=== PATIENT | female | born 2000 | race Caucasian/White ===

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

== ENCOUNTER 2020-07-05 17:43 | Emergency (ER) | payer MEDICAID ==
[2020-07-05 17:49] VITALS: TEMP 98.5
[2020-07-05] MEDS ORDERED: ACETAMINOPHEN TAB 500 MG TAB PO STA (18:01)
[2020-07-05] MEDS ORDERED: IBUPROFEN 600 MG TAB PO STA (18:01)
--- NOTE | 2020-07-05 18:08 | ED ---
ENT HPI - General Chief complaint: ENT Stated complaint: facial injury Time Seen by Provider: 07/05/20 17:54 Source: patient, RN notes reviewed, old records reviewed Mode of arrival: ambulatory Limitations: no limitations - History of Present Illness Initial comments: Patient is a 19-year-old female who presents emergency murmurs today with chief complaint of nasal pain and swelling to the left cheek and infraorbital region. Patient reports that she was kicked in the face by her great Jace. She was seen at [facility] and had an x-ray which was negative for nasal fracture. She reports she was prescribed Motrin but did not take any. She reports that she woke from a nap and complained of worsening pain and decided to come to the ER. - Related Data Home Medications Medication Instructions Recorded Confirmed Etonogestrel [Nexplanon] 1 implant SQ [id number] 11/12/18 04/10/19 Albuterol Inhaler (Mhu) [Ventolin 1 - 2 puff INHALATION RT-Q6H PRN 04/09/19 04/10/19 Hfa Inhaler] Escitalopram [Lexapro] 10 mg PO DAILY 04/09/19 04/10/19 Omeprazole [PriLOSEC] 10 mg PO DAILY 04/09/19 04/10/19 Previous Rx's Medication Instructions Recorded Acetaminophen Tab [Tylenol Tab] 500 mg PO Q6H #20 tablet 07/05/20 Allergies Allergy/AdvReac Type Severity Reaction Status Date / Time bee venom protein (honey bee) Allergy Rash/Hives Verified 07/05/20 17:49 coconut Allergy Rash/Hives Verified 07/05/20 17:49 peanut Allergy Nausea & Verified 07/05/20 17:49 Vomiting sulfamethoxazole Allergy Rash/Hives Verified 07/05/20 17:49 [From Bactrim] trimethoprim [From Bactrim] Allergy Rash/Hives Verified 07/05/20 17:49 Review of Systems ROS Statement: Those systems with pertinent positive or pertinent negative responses have been documented in the HPI. ROS Other: All systems not noted in ROS Statement are negative. Past Medical History Past Medical History: Asthma, GERD/Reflux Additional Past Medical History / Comment(s): nausea History of Any Multi-Drug Resistant Organisms: None Reported Past Surgical History: Ear Surgery Additional Past Surgical History / Comment(s): tubes in Patricio ears, wisdom teeth Past Anesthesia/Blood Transfusion Reactions: No Reported Reaction Past Psychological History: Anxiety, Depression Smoking Status: Never smoker Past Alcohol Use History: None Reported Past Drug Use History: None Reported - Past Family History Mother Family Medical History: No Reported History General Exam - General Exam Comments Initial Comments: 19-year-old female. No distress. Limitations: no limitations General appearance: alert, in no apparent distress Head exam: Present: atraumatic, normocephalic, normal inspection Eye exam: Present: normal appearance, PERRL, EOMI. Absent: scleral icterus, conjunctival injection, periorbital swelling ENT exam: Present: normal exam, mucous membranes moist, other (contusion over brdige of nose and infraorbital area. ) Neck exam: Present: normal inspection. Absent: tenderness, meningismus, lymphadenopathy Respiratory exam: Present: normal lung sounds bilaterally. Absent: respiratory distress, wheezes, rales, rhonchi, stridor Cardiovascular Exam: Present: regular rate, normal rhythm, normal heart sounds. Absent: systolic murmur, diastolic murmur, rubs, gallop, clicks GI/Abdominal exam: Present: soft, normal bowel sounds. Absent: distended, tenderness, guarding, rebound, rigid Extremities exam: Present: normal inspection, full ROM, normal capillary refill. Absent: tenderness, pedal edema, joint swelling, calf tenderness Back exam: Present: normal inspection Neurological exam: Present: alert, oriented X3, CN II-XII intact Psychiatric exam: Present: normal affect, normal mood Skin exam: Present: warm, dry, intact, normal color. Absent: rash Course Vital Signs 07/05/20 07/05/20 17:46 19:11 Temperature 98.5 F Pulse Rate 75 69 Respiratory 18 16 Rate Blood Pressure 140/97 117/71 O2 Sat by Pulse 100 100 Oximetry Medical Decision Making - Medical Decision Making 19-year-old female presents the ER today for evaluation for concern for contusion over the nose and underneath the eye after getting kicked in the face by her dog. She has a great Jace. X-ray today which was normal. Discussion the pain with eye movement. Patient will had a CT which shows no evidence of an old fracture. Discussed treatment for soft tissue swelling with isolated flipped her medicine. - Radiology Data Radiology results: report reviewed CT facial bones negative for fracture. Disposition Clinical Impression: Facial contusion Disposition: HOME SELF-CARE Condition: Good Instructions (If sedation given, give patient instructions): Facial Contusion (ED) Additional Instructions: Please use medication as discussed. Put ice on the area of redness and swelling for 20 minutes every other hour. Please follow up with family doctor if symptoms have not improved over the next two days. Please return to the emergency room if your symptoms increase or worsen or for any other concerns. Prescriptions: Acetaminophen Tab [Tylenol Tab] 500 mg PO Q6H #20 tablet Is patient prescribed a controlled substance at d/c from ED?: No Referrals: Tiffanie Stoll III, MD [Primary Care Provider] - 1-2 days
--- NOTE | 2020-07-05 18:43 | CT ---
EXAMINATION TYPE: CT facial bones wo con DATE OF EXAM: 07/05/2020 COMPARISON: None HISTORY: swelling and bruising around eyes and nasal area following facial injury CT DLP: 467.[address] of the facial bones was performed in the axial and coronal planes. Bone and soft tissu e window settings are submitted. No significant soft tissue swelling is appreciated. I do not see evidence for displaced facial bone fracture or depressed facial bone fracture. The globes are intact. Paranasal sinuses are well-aerated. IMPRESSION: 1. No evidence for depressed or displaced facial bone fracture.
[2020-07-05 19:14] VITALS: BP 117/71; PULSE 69; RESP 16
== END 2020-07-05 19:14 | disposition home or self-care (01) ==
LOC: EC 17:43
DX: S00.83XA Contusion of other part of head, initial encounter (principal); J45.909 Unspecified asthma, uncomplicated; K21.9 Gastro-esophageal reflux disease without esophagitis; F41.9 Anxiety disorder, unspecified; F32.9 Major depressive disorder, single episode, unspecified; M79.89 Other specified soft tissue disorders; Z79.899 Other long term (current) drug therapy; Z79.3 Long term (current) use of hormonal contraceptives; Z91.018 Allergy to other foods; Z91.030 Bee allergy status; Z91.010 Allergy to peanuts; Z88.2 Allergy status to sulfonamides; Z88.1 Allergy status to other antibiotic agents; W54.1XXA Struck by dog, initial encounter
CPT/HCPCS: 70486; 99284

== ENCOUNTER 2020-09-21 13:28 | Emergency (ER) | payer MEDICAID ==
[2020-09-21 14:28] LABS: Basophils % (A) 1 %; Eosinophils # (A) 0.1 k/uL (0-0.7); Eosinophils % (A) 1 %; HCT 41.1 % (34.0-46.0); HGB 13.4 gm/dL (11.4-16.0); Lymphocytes % (A) 28 %; MCH 27.1 pg (25.0-35.0); MCHC 32.6 g/dL (31.0-37.0); Mean Platelet Volume 7.5; Monocytes # (A) 0.3 k/uL (0-1.0); Monocytes % (A) 4 %; Neutrophils # (A) 4.7 k/uL (1.3-7.7); Neutrophils % (A) 65 %; Platelet Count 331 k/uL (150-450); RBC 4.95 m/uL (3.80-5.40); RDW 13.3 % (11.5-15.5); WBC 7.2 k/uL (4.0-11.0)
[2020-09-21 14:30] LABS: Appearance,Urine Clear (Clear); Bilirubin,Urine Negative (Negative); Blood,Urine Negative (Negative); Color,Urine Yellow; Glucose,Urine (UA) Negative (Negative); Ketones,Urine Negative (Negative); Leukocyte Esterase,Urine Negative (Negative); Nitrite,Urine Negative (Negative); PH, Urine 7.5 (5.0-8.0); Protein,Urine Negative (Negative); Specific Gravity,Urine 1.024 (1.001-1.035)
[2020-09-21] MEDS ORDERED: SODIUM CHLORIDE 0.9% 1,000 ML IV STA (14:37)
[2020-09-21] MEDS ORDERED: ONDANSETRON 4 MG/2 ML VIAL IVP STA (14:55)
[2020-09-21] MEDS ORDERED: KETOROLAC 15 MG/ML 1 ML VIAL IVP STA (14:55)
[2020-09-21 15:04] LABS: ALT 19 U/L (4-34); AST 31 U/L (14-36); African American GFR (CKD) >90 (>60 ml/min/1.73 sqM); Albumin 4.4 g/dL (3.5-5.0); Alkaline Phosphatase 57 U/L (38-126); Anion Gap 8 mmol/L; Blood Urea Nitrogen 10 mg/dL (7-17); Calcium 9.5 mg/dL (8.4-10.2); Carbon Dioxide 21 mmol/L (22-30); Chloride 109 mmol/L (98-107); Glucose 87 mg/dL (74-99); Non-African American GFR(CKD) >90 (>60 ml/min/1.73 sqM); Potassium 4.5 mmol/L (3.5-5.1); Sodium 138 mmol/L (137-145); Total Bilirubin 0.7 mg/dL (0.2-1.3); Total Protein 7.6 g/dL (6.3-8.2)
[2020-09-21 15:23] LABS: Amylase 41 U/L (30-110); Lipase 62 U/L (23-300)
--- NOTE | 2020-09-21 15:51 | CT ---
EXAMINATION TYPE: CT abdomen pelvis w con DATE OF EXAM: 09/21/2020 COMPARISON: November 12, 2018 HISTORY: RLQ and back pain CT DLP: 944.65 mGycm CONTRAST: CT scan of the abdomen and pelvis is performed without Oral Contrast and with IV Contrast, patient in jected with 100 mL of Isovue 300. FINDINGS: LUNG BASES-: No visible nodule. No infiltrate. LIVER/GB: No calcified gallstones. No space occupying hepatic lesion. Biliary tree is of normal ca liber. PANCREAS: No inflammation. No distinct mass. SPLEEN: No splenic enlargement. No lesion seen. ADRENALS: No nodule. No thickening. KIDNEYS/BLADDER: No hydronephrosis. No nephrolithiasis. No distinct renal mass. Urinary bladder g rossly unremarkable. BOWEL: Normal appendix. Normal bowel caliber. No inflammation. GENITAL ORGANS: Left ovarian cystic lesion measuring 3.3 cm. Right ovary appears unremarkable. No ev idence for free fluid. Uterus is free of mass lesion. LYMPH NODES: No greater than 1cm abdominal or pelvic lymph nodes are appreciated. AORTA: No significant abnormality. OSSEOUS STRUCTURES: No significant abnormality is seen. OTHER: No significant additional abnormality is seen. IMPRESSION: 1. Normal-appearing appendix. 2. Left ovarian cystic lesion.
[2020-09-21 16:04] VITALS: BP 107/48; PULSE 56; RESP 16; TEMP 98.3
[2020-09-21] MEDS ORDERED: MORPHINE SULFATE 4 MG/ML SYRINGE IVP STA (16:09)
--- NOTE | 2020-09-21 16:14 | ED ---
Abdominal Pain HPI - General Chief Complaint: Abdominal Pain Stated Complaint: abd pain Time Seen by Provider: 09/21/20 14:36 Source: patient Mode of arrival: ambulatory Limitations: no limitations - History of Present Illness Initial Comments: 20-year-old female presenting to the emergency department with a chief complaint of abdominal pain. Patient reports she developed a somewhat of a sudden onset of right lower quadrant abdominal pain yesterday with slight radiation to the flank region. Patient states afterwards she developed chills, nausea and multiple episodes of nonbilious and nonbloody vomiting. Denies any diarrhea. Denies increased urgency frequency or dysuria. Denies any vaginal symptoms. She does have history of ovarian cysts. No history of previous abdominal surgeries. No back pain, chest pain or shortness of breath. - Related Data Home Medications Medication Instructions Recorded Confirmed Etonogestrel [Nexplanon] 1 implant SQ [id number] 11/12/18 09/21/20 ALPRAZolam [Xanax] 0.25 mg PO DAILY PRN 09/21/20 09/21/20 Desvenlafaxine Succinate [Pristiq] 50 mg PO HS 09/21/20 09/21/20 Ondansetron [Zofran] 4 mg PO Q12HR PRN 09/21/20 09/21/20 Allergies Allergy/AdvReac Type Severity Reaction Status Date / Time bee venom protein (honey bee) Allergy Rash/Hives Verified 09/21/20 15:15 coconut Allergy Rash/Hives Verified 09/21/20 15:15 peanut Allergy Nausea & Verified 09/21/20 15:15 Vomiting sulfamethoxazole Allergy Rash/Hives Verified 09/21/20 15:15 [From Bactrim] trimethoprim [From Bactrim] Allergy Rash/Hives Verified 09/21/20 15:15 Review of Systems ROS Statement: Those systems with pertinent positive or pertinent negative responses have been documented in the HPI. ROS Other: All systems not noted in ROS Statement are negative. Past Medical History Past Medical History: Asthma, GERD/Reflux Additional Past Medical History / Comment(s): nausea History of Any Multi-Drug Resistant Organisms: None Reported Past Surgical History: Ear Surgery Additional Past Surgical History / Comment(s): tubes in Patricio ears, wisdom teeth, Past Anesthesia/Blood Transfusion Reactions: No Reported Reaction Past Psychological History: Anxiety, Depression Smoking Status: Never smoker Past Alcohol Use History: None Reported Past Drug Use History: None Reported - Past Family History Mother Family Medical History: No Reported History General Exam Limitations: no limitations General appearance: alert, in no apparent distress, obese Head exam: Present: atraumatic, normocephalic, normal inspection Eye exam: Present: normal appearance, PERRL, EOMI Pupils: Present: normal accommodation ENT exam: Present: normal exam, normal oropharynx, mucous membranes moist, TM's normal bilaterally, normal external ear exam Neck exam: Present: normal inspection, full ROM. Absent: tenderness Respiratory exam: Present: normal lung sounds bilaterally. Absent: respiratory distress, wheezes, rales Cardiovascular Exam: Present: regular rate, normal rhythm, normal heart sounds GI/Abdominal exam: Present: soft, tenderness (Right lower quadrant. Positive McBurney point. Positive obturator. negative Rovsing.). Absent: distended, guarding, rebound, rigid Extremities exam: Present: normal inspection, full ROM, normal capillary refill. Absent: tenderness, pedal edema, joint swelling, calf tenderness Back exam: Present: normal inspection, full ROM. Absent: tenderness, CVA tenderness (R), CVA tenderness (L) Neurological exam: Present: alert, oriented X3, normal gait Psychiatric exam: Present: normal affect, normal mood Skin exam: Present: warm, dry, intact, normal color Course Vital Signs 09/21/20 09/21/20 13:49 16:00 Temperature 99.0 F 98.3 F Pulse Rate 72 56 L Respiratory 17 16 Rate Blood Pressure 112/73 107/48 O2 Sat by Pulse 99 98 Oximetry Medical Decision Making - Medical Decision Making 20-year-old female presenting to the emergency department with chief complaint of right lower quadrant abdominal pain. On physical examination, patient does have positive McBurney point tenderness. Patient was given IV fluids, analgesia and antiemetics. CBC CMP is unremarkable. Patient is not . UA is unremarkable. Lactic acid within normal limits. CT of the pelvis reveals a left ovarian cyst but a normal appendix. There was a concern for possible ovarian torsion so transvaginal ultrasound was also performed and it was unrem arkable. Return parameters were thoroughly discussed the patient was understanding and agreeable. Case discussed with physician. - Lab Data Result diagrams: 09/21/20 14:05 11/11/20 14:05 Lab Results 09/21/20 09/21/20 09/21/20 Range/Units 14:05 14:05 14:05 WBC 7.2 (4.0-11.0) k/uL RBC 4.95 (3.80-5.40) m/uL Hgb 13.4 (11.4-16.0) gm/dL Hct 41.1 (34.0-46.0) % MCV 83.0 (80.0-100.0) fL MCH 27.1 (25.0-35.0) pg MCHC 32.6 (31.0-37.0) g/dL RDW 13.3 (11.5-15.5) % Plt Count 331 (150-450) k/uL MPV 7.5 Neutrophils % 65 % Lymphocytes % 28 % Monocytes % 4 % Eosinophils % 1 % Basophils % 1 % Neutrophils # 4.7 (1.3-7.7) k/uL Lymphocytes # 2.0 (1.0-4.8) k/uL Monocytes # 0.3 (0-1.0) k/uL Eosinophils # 0.1 (0-0.7) k/uL Basophils # 0.0 (0-0.2) k/uL Sodium (137-145) mmol/L Potassium (3.5-5.1) mmol/L Chloride (98-107) mmol/L Carbon Dioxide (22-30) mmol/L Anion Gap mmol/L BUN (7-17) mg/dL Creatinine (0.52-1.04) mg/dL Est GFR (CKD-EPI)AfAm (>60 ml/min/1.73 sqM) Est GFR (CKD-EPI)NonAf (>60 ml/min/1.73 sqM) Glucose (74-99) mg/dL Plasma Lactic Acid [place] (0.7-2.0) mmol/L Calcium (8.4-10.2) mg/dL Total Bilirubin (0.2-1.3) mg/dL AST (14-36) U/L ALT (4-34) U/L Alkaline Phosphatase (38-126) U/L Total Protein (6.3-8.2) g/dL Albumin (3.5-5.0) g/dL Amylase (30-110) U/L Lipase (23-300) U/L Urine Color Yellow Urine Appearance Clear (Clear) Urine pH 7.5 (5.0-8.0) Ur Specific [place] 1.024 (1.001-1.035) Urine Protein Negative (Negative) Urine Glucose (UA) Negative (Negative) Urine Ketones Negative (Negative) Urine Blood Negative (Negative) Urine Nitrite Negative (Negative) Urine Bilirubin Negative (Negative) Urine Urobilinogen 2.0 (<2.0) mg/dL Ur Leukocyte Esterase Negative (Negative) Urine HCG, Qual Not Detected (Not Detectd) 09/21/20 09/21/20 09/21/20 Range/Units 14:05 14:57 14:57 WBC (4.0-11.0) k/uL RBC (3.80-5.40) m/uL Hgb (11.4-16.0) gm/dL Hct (34.0-46.0) % MCV (80.0-100.0) fL MCH (25.0-35.0) pg MCHC (31.0-37.0) g/dL RDW (11.5-15.5) % Plt Count (150-450) k/uL MPV Neutrophils % % Lymphocytes % % Monocytes % % Eosinophils % % Basophils % % Neutrophils # (1.3-7.7) k/uL Lymphocytes # (1.0-4.8) k/uL Monocytes # (0-1.0) k/uL Eosinophils # (0-0.7) k/uL Basophils # (0-0.2) k/uL Sodium 138 (137-145) mmol/L Potassium 4.5 (3.5-5.1) mmol/L Chloride 109 H (98-107) mmol/L Carbon Dioxide 21 L (22-30) mmol/L Anion Gap 8 mmol/L BUN 10 (7-17) mg/dL Creatinine 0.64 (0.52-1.04) mg/dL Est GFR (CKD-EPI)AfAm >90 (>60 ml/min/1.73 sqM) Est GFR (CKD-EPI)NonAf >90 (>60 ml/min/1.73 sqM) Glucose 87 (74-99) mg/dL Plasma Lactic Acid [place] 1.0 (0.7-2.0) mmol/L Calcium 9.5 (8.4-10.2) mg/dL Total Bilirubin 0.7 (0.2-1.3) mg/dL AST 31 (14-36) U/L ALT 19 (4-34) U/L Alkaline Phosphatase 57 (38-126) U/L Total Protein 7.6 (6.3-8.2) g/dL Albumin 4.4 (3.5-5.0) g/dL Amylase 41 (30-110) U/L Lipase 62 (23-300) U/L Urine Color Urine Appearance (Clear) Urine pH (5.0-8.0) Ur Specific [place] (1.001-1.035) Urine Protein (Negative) Urine Glucose (UA) (Negative) Urine Ketones (Negative) Urine Blood (Negative) Urine Nitrite (Negative) Urine Bilirubin (Negative) Urine Urobilinogen (<2.0) mg/dL Ur Leukocyte Esterase (Negative) Urine HCG, Qual (Not Detectd) Disposition Clinical Impression: Abdominal pain, Nausea & vomiting Disposition: HOME SELF-CARE Condition: Stable Instructions (If sedation given, give patient instructions): Abdominal Pain (ED) Additional Instructions: Take prescribed medication as directed. Follow up with her primary care physician. Return to emergency department if symptoms worsen. Is patient prescribed a controlled substance at d/c from ED?: No Referrals: Tiffanie Stoll III, MD [Primary Care Provider] - 1-2 days Time of Disposition: 17:27
--- NOTE | 2020-09-21 17:16 | US ---
EXAMINATION TYPE: US transvaginal DATE OF EXAM: 09/21/2020 COMPARISON: CT done same day CLINICAL HISTORY: r/o torsion. TECHNIQUE: Transvaginal (TV). Date of LMP: unknown, patient states has nexplon and cycles not regular. EXAM MEASUREMENTS: Uterus: 7.7 x 3.3 x 4.2 cm Endometrial Stripe: 0.5 cm Right Ovary: 3.5 x 2.4 x 4.1 cm Left Ovary: 3.7 x 2.9 x 4.5 cm 1. Uterus: Anteverted wnl 2. Endometrium: measures 0.5 cm 3. Right Ovary: wnl 4. Left Ovary: cyst measures 3.1 x 2.4 x 3.8 cm Spectral, color and waveform doppler imaging shows good arterial and venous flow within the ovaries ; there is no evidence for ovarian torsion. 5. Bilateral Adnexa: wnl 6. Posterior cul-de-sac: no free fluid IMPRESSION: No evidence of ovarian torsion. Dominant cyst on the left ovary. No solid adnexal mass.
[2020-09-21] MEDS ORDERED: ONDANSETRON 4 MG ODT STARTER PACK 2 TAB BTL PO STA (17:26)
[2020-09-21] MEDS ORDERED: ACET/COD 300 MG/30 MG STARTER PACK 6 TAB BTL PO STA (17:26)
== END 2020-09-21 18:07 | disposition home or self-care (01) ==
LOC: EC 13:28
DX: R10.31 Right lower quadrant pain (principal); N83.202 Unspecified ovarian cyst, left side; F41.9 Anxiety disorder, unspecified; F32.9 Major depressive disorder, single episode, unspecified; K21.9 Gastro-esophageal reflux disease without esophagitis; Z79.899 Other long term (current) drug therapy; Z88.1 Allergy status to other antibiotic agents; Z88.2 Allergy status to sulfonamides; Z91.010 Allergy to peanuts; Z91.030 Bee allergy status; Z91.018 Allergy to other foods
CPT/HCPCS: 36415; 80053; 82150; 83605; 83690; 85025; 81003; 81025; 87040; 87086; 93975; 76830; 74177; 99284; 96374; 96375 ×2; 96361; J2270; J2405; J1885; S0119; Q9967

== ENCOUNTER 2020-09-23 12:59 | Emergency (ER) | payer MEDICAID ==
[2020-09-23] MEDS ORDERED: SODIUM CHLORIDE 0.9% 1,000 ML IV STA (13:27)
[2020-09-23] MEDS ORDERED: ONDANSETRON 4 MG/2 ML VIAL IVP STA (13:32)
[2020-09-23] MEDS ORDERED: MORPHINE SULFATE 4 MG/ML SYRINGE IVP STA (13:32)
--- NOTE | 2020-09-23 13:47 | ED ---
Abdominal Pain HPI - General Chief Complaint: Abdominal Pain Stated Complaint: ABD pain Time Seen by Provider: 09/23/20 13:20 Source: patient Mode of arrival: ambulatory Limitations: no limitations - History of Present Illness Initial Comments: 20-year-old female presenting to the emergency department with a chief complaint abdominal pain. Patient reports the pain started about 6 days ago. Patient reports she was evaluated in the emergency department 2 days ago with no significant findings. Patient reports she continued to have the exact same sym ptoms. Patient reports continuous nausea with 2 episodes of nonbilious nonbloody vomiting. Denies any constipation or diarrhea. Reports the pain continues to be in the same spot, right lower quadrant abdominal region. She denies possibility of . Does report chills but no fevers. Patient reports the pain is not postprandial and is sharp in nature. States she called her primary care physician who advised her to come to the emergency department. - Related Data Home Medications Medication Instructions Recorded Confirmed Etonogestrel [Nexplanon] 1 implant SQ [id number] 11/12/18 09/23/20 ALPRAZolam [Xanax] 0.25 mg PO DAILY PRN 09/21/20 09/23/20 Desvenlafaxine Succinate [Pristiq] 50 mg PO HS 09/21/20 09/23/20 Ondansetron [Zofran] 4 mg PO Q12HR PRN 09/21/20 09/23/20 Albuterol Sulfate [Ventolin HFA] 1 - 2 puff INHALATION RT-Q6H PRN 09/23/20 09/23/20 Previous Rx's Medication Instructions Recorded Ondansetron Odt [Zofran Odt] 4 mg PO Q8HR PRN #30 tab 09/23/20 Tamsulosin [Flomax] 0.4 mg PO DAILY #7 cap 09/23/20 Allergies Allergy/AdvReac Type Severity Reaction Status Date / Time bee venom protein (honey bee) Allergy Rash/Hives Verified 09/23/20 13:46 coconut Allergy Rash/Hives Verified 09/23/20 13:46 peanut Allergy Nausea & Verified 09/23/20 13:46 Vomiting sulfamethoxazole Allergy Rash/Hives Verified 09/23/20 13:46 [From Bactrim] trimethoprim [From Bactrim] Allergy Rash/Hives Verified 09/23/20 13:46 Review of Systems ROS Statement: Those systems with pertinent positive or pertinent negative responses have been documented in the HPI. ROS Other: All systems not noted in ROS Statement are negative. Past Medical History Past Medical History: Asthma, GERD/Reflux Additional Past Medical History / Comment(s): nausea History of Any Multi-Drug Resistant Organisms: None Reported Past Surgical History: Ear Surgery Additional Past Surgical History / Comment(s): tubes in Patricio ears, wisdom teeth, Past Anesthesia/Blood Transfusion Reactions: No Reported Reaction Past Psychological History: Anxiety, Depression Smoking Status: Never smoker Past Alcohol Use History: None Reported Past Drug Use History: None Reported - Past Family History Mother Family Medical History: No Reported History General Exam Limitations: no limitations General appearance: alert, appears intoxicated, obese Head exam: Present: atraumatic, normocephalic, normal inspection Eye exam: Present: normal appearance, PERRL, EOMI Pupils: Present: normal accommodation ENT exam: Present: normal exam, normal oropharynx, mucous membranes moist, TM's normal bilaterally, normal external ear exam Neck exam: Present: normal inspection, full ROM. Absent: tenderness Respiratory exam: Present: normal lung sounds bilaterally. Absent: respiratory distress, wheezes, rales Cardiovascular Exam: Present: regular rate, normal rhythm, normal heart sounds GI/Abdominal exam: Present: soft, tenderness (Right lower quadrant. Positive McBurney point tenderness.). Absent: distended, guarding, rebound, rigid Extremities exam: Present: normal inspection, full ROM, normal capillary refill. Absent: tenderness, pedal edema, joint swelling, calf tenderness Back exam: Present: normal inspection, full ROM, CVA tenderness (R) (Mild). Absent: tenderness, CVA tenderness (L), muscle spasm, paraspinal tenderness, vertebral tenderness Neurological exam: Present: alert, oriented X3 Psychiatric exam: Present: normal affect, normal mood. Absent: depressed, agitated Skin exam: Present: warm, dry, intact, normal color Course Vital Signs 09/23/20 09/23/20 13:10 15:15 Temperature 99.4 F Pulse Rate 71 59 L Respiratory 16 18 Rate Blood Pressure 122/66 107/69 O2 Sat by Pulse 98 99 Oximetry - Reevaluation(s) Reevaluation #1: 09/23/20 16:03 Medical record reviewed Medical Decision Making - Medical Decision Making 20-year-old female presents emergency Department with chief complaint abdominal pain. On physical examination patient has right lower quadrant and right CVA tenderness. Patient was given IV fluids, antiemetics and analgesia. On reevaluation, patient continues to complain of nausea. Patient was given Reglan and Benadryl which alleviate his symptoms. CBC CMP is unremarkable. UA does reveal extraocular hematuria with elevated red blood cells and moderate amounts of blood. I suspect the patient is a renal stone causing her to have the symptoms. Considering she had CT imaging of the abdomen and pelvis 2 days ago, ultrasound of the kidneys was obtained in order to reduce exposure to radiation. Ultrasound was negative for hydronephrosis. Advised the patient to follow up with urology. Also discharged the patient with Tylenol 3 starter pack Zofran and Flomax. Strict return parameters were thoroughly discussed the patient was on standing agreeable. Case discussed with physician. - Lab Data Result diagrams: 09/23/20 14:02 09/23/20 14:02 Lab Results 09/23/20 09/23/20 09/23/20 Range/Units 14:02 14:02 14:02 WBC 6.7 (4.0-11.0) k/uL RBC 4.74 (3.80-5.40) m/uL Hgb 12.9 (11.4-16.0) gm/dL Hct 39.4 (34.0-46.0) % MCV 83.0 (80.0-100.0) fL MCH 27.2 (25.0-35.0) pg MCHC 32.7 (31.0-37.0) g/dL RDW 13.4 (11.5-15.5) % Plt Count 304 (150-450) k/uL MPV 7.3 Neutrophils % 62 % Lymphocytes % 30 % Monocytes % 5 % Eosinophils % 1 % Basophils % 1 % Neutrophils # 4.1 (1.3-7.7) k/uL Lymphocytes # 2.0 (1.0-4.8) k/uL Monocytes # 0.4 (0-1.0) k/uL Eosinophils # 0.1 (0-0.7) k/uL Basophils # 0.0 (0-0.2) k/uL Sodium (137-145) mmol/L Potassium (3.5-5.1) mmol/L Chloride (98-107) mmol/L Carbon Dioxide (22-30) mmol/L Anion Gap mmol/L BUN (7-17) mg/dL Creatinine (0.52-1.04) mg/dL Est GFR (CKD-EPI)AfAm (>60 ml/min/1.73 sqM) Est GFR (CKD-EPI)NonAf (>60 ml/min/1.73 sqM) Glucose (74-99) mg/dL Calcium (8.4-10.2) mg/dL Total Bilirubin (0.2-1.3) mg/dL AST (14-36) U/L ALT (4-34) U/L Alkaline Phosphatase (38-126) U/L Total Protein (6.3-8.2) g/dL Albumin (3.5-5.0) g/dL Urine Color Light Yellow Urine Appearance Clear (Clear) Urine pH 7.0 (5.0-8.0) Ur Specific [place] 1.014 (1.001-1.035) Urine Protein Negative (Negative) Urine Glucose (UA) Negative (Negative) Urine Ketones Negative (Negative) Urine Blood Large H (Negative) Urine Nitrite Negative (Negative) Urine Bilirubin Negative (Negative) Urine Urobilinogen <2.0 (<2.0) mg/dL Ur Leukocyte Esterase Negative (Negative) Urine RBC 29 H (0-5) /hpf Urine WBC <1 (0-5) /hpf Ur Squamous Epith Cells <1 (0-4) /hpf Urine Mucus Rare H (None) /hpf Urine HCG, Qual Not Detected (Not Detectd) 09/23/20 Range/Units 14:02 WBC (4.0-11.0) k/uL RBC (3.80-5.40) m/uL Hgb (11.4-16.0) gm/dL Hct (34.0-46.0) % MCV (80.0-100.0) fL MCH (25.0-35.0) pg MCHC (31.0-37.0) g/dL RDW (11.5-15.5) % Plt Count (150-450) k/uL MPV Neutrophils % % Lymphocytes % % Monocytes % % Eosinophils % % Basophils % % Neutrophils # (1.3-7.7) k/uL Lymphocytes # (1.0-4.8) k/uL Monocytes # (0-1.0) k/uL Eosinophils # (0-0.7) k/uL Basophils # (0-0.2) k/uL Sodium 139 (137-145) mmol/L Potassium 3.8 (3.5-5.1) mmol/L Chloride 110 H (98-107) mmol/L Carbon Dioxide 25 (22-30) mmol/L Anion Gap 4 mmol/L BUN 7 (7-17) mg/dL Creatinine 0.69 (0.52-1.04) mg/dL Est GFR (CKD-EPI)AfAm >90 (>60 ml/min/1.73 sqM) Est GFR (CKD-EPI)NonAf >90 (>60 ml/min/1.73 sqM) Glucose 87 (74-99) mg/dL Calcium 9.2 (8.4-10.2) mg/dL Total Bilirubin 0.4 (0.2-1.3) mg/dL AST 33 (14-36) U/L ALT 15 (4-34) U/L Alkaline Phosphatase 59 (38-126) U/L Total Protein 7.5 (6.3-8.2) g/dL Albumin 4.3 (3.5-5.0) g/dL Urine Color Urine Appearance (Clear) Urine pH (5.0-8.0) Ur Specific [place] (1.001-1.035) Urine Protein (Negative) Urine Glucose (UA) (Negative) Urine Ketones (Negative) Urine Blood (Negative) Urine Nitrite (Negative) Urine Bilirubin (Negative) Urine Urobilinogen (<2.0) mg/dL Ur Leukocyte Esterase (Negative) Urine RBC (0-5) /hpf Urine WBC (0-5) /hpf Ur Squamous Epith Cells (0-4) /hpf Urine Mucus (None) /hpf Urine HCG, Qual (Not Detectd) Disposition Clinical Impression: Abdominal pain, Nausea & vomiting, Hematuria Disposition: HOME SELF-CARE Condition: Stable Instructions (If sedation given, give patient instructions): Kidney Stones (ED) Additional Instructions: Follow-up with a specialist. Take prescribed medication as directed. Return to emergency department if symptoms worsen. Prescriptions: Ondansetron Odt [Zofran Odt] 4 mg PO Q8HR PRN #30 tab PRN Reason: Nausea Is patient prescribed a controlled substance at d/c from ED?: No Referrals: Tiffanie Stoll III, MD [Primary Care Provider] - 1-2 days Gordon Vasquez MD [STAFF PHYSICIAN] - 1-2 days Time of Disposition: 16:02
[2020-09-23 14:26] LABS: Basophils % (A) 1 %; Eosinophils # (A) 0.1 k/uL (0-0.7); Eosinophils % (A) 1 %; HCT 39.4 % (34.0-46.0); HGB 12.9 gm/dL (11.4-16.0); Lymphocytes % (A) 30 %; MCH 27.2 pg (25.0-35.0); MCHC 32.7 g/dL (31.0-37.0); Mean Platelet Volume 7.3; Monocytes # (A) 0.4 k/uL (0-1.0); Monocytes % (A) 5 %; Neutrophils # (A) 4.1 k/uL (1.3-7.7); Neutrophils % (A) 62 %; Platelet Count 304 k/uL (150-450); RBC 4.74 m/uL (3.80-5.40); RDW 13.4 % (11.5-15.5); WBC 6.7 k/uL (4.0-11.0)
[2020-09-23 14:38] LABS: Appearance,Urine Clear (Clear); Bilirubin,Urine Negative (Negative); Blood,Urine Large (Negative); Color,Urine Light Yellow; Glucose,Urine (UA) Negative (Negative); Ketones,Urine Negative (Negative); Leukocyte Esterase,Urine Negative (Negative); Mucus,Urine Rare /hpf; Nitrite,Urine Negative (Negative); Protein,Urine Negative (Negative); RBC,Urine 29 /hpf (0-5); Specific Gravity,Urine 1.014 (1.001-1.035); Squamous Epithelial Cell,Urine <1 /hpf (0-4); Urobilinogen,Urine <2.0 mg/dL (<2.0); WBC,Urine <1 /hpf (0-5)
[2020-09-23 14:39] LABS: ALT 15 U/L (4-34); AST 33 U/L (14-36); African American GFR (CKD) >90 (>60 ml/min/1.73 sqM); Albumin 4.3 g/dL (3.5-5.0); Alkaline Phosphatase 59 U/L (38-126); Anion Gap 4 mmol/L; Blood Urea Nitrogen 7 mg/dL (7-17); Calcium 9.2 mg/dL (8.4-10.2); Carbon Dioxide 25 mmol/L (22-30); Chloride 110 mmol/L (98-107); Glucose 87 mg/dL (74-99); Non-African American GFR(CKD) >90 (>60 ml/min/1.73 sqM); Potassium 3.8 mmol/L (3.5-5.1); Sodium 139 mmol/L (137-145); Total Bilirubin 0.4 mg/dL (0.2-1.3); Total Protein 7.5 g/dL (6.3-8.2)
--- NOTE | 2020-09-23 15:52 | US ---
EXAMINATION TYPE: US kidneys/renal and bladder DATE OF EXAM: 09/23/2020 COMPARISON: CT 09/21/2020 CLINICAL HISTORY: 20 year-old female concern for hydronephrosis. Right flank pain x couple days TECHNIQUE: Multiple sonographic images of the kidneys and bladder are obtained. FINDINGS: EXAM MEASUREMENTS: Right Kidney: 11.2 x 4.3 x 4.4 cm Left Kidney: 10.2 x 5.3 x 4.6 cm No hydronephrosis on either side. Bladder: wnl Bilateral Jets seen: yes IMPRESSION: No hydronephrosis.
[2020-09-23] MEDS ORDERED: METOCLOPRAMIDE 5 MG/ML 2 ML VIAL IVP STA (16:01)
[2020-09-23] MEDS ORDERED: diphenhydrAMINE 50 MG/ML 1 ML VIAL IVP STA (16:01)
[2020-09-23] MEDS ORDERED: ACET/COD 300 MG/30 MG STARTER PACK 6 TAB BTL PO STA (16:01)
[2020-09-23 16:31] VITALS: BP 112/62; PULSE 87; RESP 16; TEMP 98.8
== END 2020-09-23 16:41 | disposition home or self-care (01) ==
LOC: EC 12:59
DX: R10.31 Right lower quadrant pain (principal); R11.2 Nausea with vomiting, unspecified; R31.9 Hematuria, unspecified; F10.129 Alcohol abuse with intoxication, unspecified; E66.9 Obesity, unspecified; J45.909 Unspecified asthma, uncomplicated; F41.9 Anxiety disorder, unspecified; F32.9 Major depressive disorder, single episode, unspecified; R68.83 Chills (without fever); Z79.51 Long term (current) use of inhaled steroids; Z79.899 Other long term (current) drug therapy; Z79.3 Long term (current) use of hormonal contraceptives; Z88.2 Allergy status to sulfonamides; Z88.1 Allergy status to other antibiotic agents; Z91.010 Allergy to peanuts; Z91.048 Other nonmedicinal substance allergy status; Z91.018 Allergy to other foods; Z91.030 Bee allergy status; Z68.30 Body mass index [BMI] 30.0-30.9, adult
CPT/HCPCS: 36415; 80053; 85025; 81001; 81025; 76770; 99284; 96374; 96375 ×3; 96361 ×2; J2270; J1200; J2765; J2405

== ENCOUNTER 2020-10-23 11:33 | Emergency (ER) | payer MEDICAID ==
[2020-10-23] MEDS ORDERED: diphenhydrAMINE 50 MG/ML 1 ML VIAL IM STA (11:49)
[2020-10-23] MEDS ORDERED: methylPREDNISolone SOD SUCCI 125 MG/2 ML VIAL IM ONE (11:49)
--- NOTE | 2020-10-23 11:53 | ED ---
General Adult HPI - General Chief complaint: Recheck/Abnormal Lab/Rx Stated complaint: Poss Allergic Reaction, +Covid Time Seen by Provider: 10/23/20 11:40 Source: patient Mode of arrival: ambulatory Limitations: no limitations - History of Present Illness Initial comments: Patient is a 20-year-old female presenting to the emergency Department with comp laints of some mild swelling of her hands and feet that she noticed today. Patient states yesterday she noticed some welts on her elbows but those have since gone away. She states she took Benadryl yesterday for these symptoms. Patient was diagnosed Covid a 1 week ago, her symptoms have been mild but just some nasal congestion. She denies any chest pain, no shortness of breath. She denies any trouble breathing, no abdominal pain, no nausea or vomiting. She denies being . Patient states she has had these random ALLERGIC responses to things in the past but she is unsure what she is ALLERGIC to. She denies being on any new medications, she takes no medications at all right now. She denies any new soaps, lotions, laundry detergents. Patient has been able to eat and drink as normal. Patient did not take any Tylenol or Motrin today. She has no further complaints at this time. Upon arrival to the ER, her vitals are stable. - Related Data Home Medications Medication Instructions Recorded Confirmed Etonogestrel [Nexplanon] 1 implant SQ [id number] 11/12/18 09/23/20 ALPRAZolam [Xanax] 0.25 mg PO DAILY PRN 09/21/20 09/23/20 Desvenlafaxine Succinate [Pristiq] 50 mg PO HS 09/21/20 09/23/20 Ondansetron [Zofran] 4 mg PO Q12HR PRN 09/21/20 09/23/20 Albuterol Sulfate [Ventolin HFA] 1 - 2 puff INHALATION RT-Q6H PRN 09/23/20 09/23/20 Previous Rx's Medication Instructions Recorded Ondansetron Odt [Zofran Odt] 4 mg PO Q8HR PRN #30 tab 09/23/20 Tamsulosin [Flomax] 0.4 mg PO DAILY #7 cap 09/23/20 predniSONE [Deltasone] 20 mg PO BID 3 Days #6 tab 10/23/20 Allergies Allergy/AdvReac Type Severity Reaction Status Date / Time bee venom protein (honey bee) Allergy Rash/Hives Verified 09/23/20 13:46 coconut Allergy Rash/Hives Verified 09/23/20 13:46 peanut Allergy Nausea & Verified 09/23/20 13:46 Vomiting sulfamethoxazole Allergy Rash/Hives Verified 09/23/20 13:46 [From Bactrim] trimethoprim [From Bactrim] Allergy Rash/Hives Verified 09/23/20 13:46 Review of Systems ROS Statement: Those systems with pertinent positive or pertinent negative responses have been documented in the HPI. ROS Other: All systems not noted in ROS Statement are negative. Past Medical History Past Medical History: Asthma, GERD/Reflux Additional Past Medical History / Comment(s): nausea History of Any Multi-Drug Resistant Organisms: None Reported Past Surgical History: Ear Surgery Additional Past Surgical History / Comment(s): tubes in Patricio ears, wisdom teeth, Past Anesthesia/Blood Transfusion Reactions: No Reported Reaction Past Psychological History: Anxiety, Depression Smoking Status: Never smoker Past Alcohol Use History: None Reported Past Drug Use History: None Reported - Past Family History Mother Family Medical History: No Reported History General Exam - General Exam Comments Initial Comments: GENERAL: Patient is well-developed and well-nourished. Patient is nontoxic and in no acute distress. HEAD: Atraumatic, normocephalic. EYES: Pupils equal round and reactive to light, extraocular movements intact, sclera anicteric, conjunctiva are normal. Eyelids were unremarkable. ENT: TMs normal, nares patent, oropharynx clear without exudates. Moist mucous membranes. NECK: Normal range of motion, supple without lymphadenopathy or JVD. LUNGS: Unlabored respirations. Breath sounds clear to auscultation bilaterally and equal. No wheezes rales or rhonchi. HEART: Regular rate and rhythm without murmurs, rubs or gallops. ABDOMEN: Soft, nontender, normoactive bowel sounds. No guarding, no rebound. No masses appreciated. : Deferred MUSCULOSKELETAL: Normal extremities with adequate strength and normal range of motion. No clubbing or cyanosis. Patient is neurovascular intact upper and lower extremities bilaterally, pulses are equal. NEUROLOGICAL: Patient is alert and oriented x 3. Motor and sensory are also intact. Cranial nerves II through XII grossly intact. Symmetrical smile. Normal speech, normal gait. PSYCH: Normal mood, normal affect. SKIN: Warm, Dry, normal turgor, no rashes or lesions noted. Patient has some very mild swelling of her bilateral hands, she has full range of motion. There is no erythema, no rashes present. Limitations: no limitations Course Vital Signs 10/23/20 10/23/20 10/23/20 11:38 12:01 12:17 Temperature 98.7 F Pulse Rate 97 88 99 Respiratory 16 18 18 Rate Blood Pressure 126/79 O2 Sat by Pulse 100 98 100 Oximetry Medical Decision Making - Medical Decision Making Patient is a 20-year-old female here for some mild swelling of her hands and feet that started yesterday. She did notice a rash on her elbows yesterday but that has since gone away. Her vital signs are stable. She denies any new medications, no new soaps or laundry detergents. She has had these kind reactions in the past but is unsure what she is ALLERGIC to. Patient was given some IM Benadryl and steroids. Her vital signs remained stable. His symptoms seem to be mildly improved. I discussed with patient this could be an ALLERGIC response or it could be a viral rash from her recent Covid infection. At this time she is stable for discharge. She does have an appointment with her PCP in 2 days. She can continue with Benadryl as needed for any itchiness, and will give her a short prescription for steroids. Patient is in agreement with this plan of care. She is stable for discharge. Return parameters were discussed with the patient she verbalized understanding. Case discussed with Dr. oPrter. Disposition Clinical Impression: Rash, Viral illness Disposition: HOME SELF-CARE Condition: Stable Instructions (If sedation given, give patient instructions): Acute Rash (ED) Additional Instructions: Please return to the Emergency Department if symptoms worsen or any other concerns. This rash could be ALLERGIC in nature or a viral rash from your recent Covid infection. U made take Benadryl for itching. May also take the steroids as prescribed for swelling and discomfort. Follow-up with your regular physician as discussed in 1-3 days. Prescriptions: predniSONE [Deltasone] 20 mg PO BID 3 Days #6 tab Is patient prescribed a controlled substance at d/c from ED?: No Referrals: Tiffanie Stoll III, MD [Primary Care Provider] - 1-2 days
[2020-10-23 12:06] VITALS: RESP 18
[2020-10-23 13:09] VITALS: BP 131/79; PULSE 74; TEMP 97.9
== END 2020-10-23 13:09 | disposition home or self-care (01) ==
LOC: EC 11:33
DX: R21 Rash and other nonspecific skin eruption (principal); R22.33 Localized swelling, mass and lump, upper limb, bilateral; R22.43 Localized swelling, mass and lump, lower limb, bilateral; B34.9 Viral infection, unspecified; J45.909 Unspecified asthma, uncomplicated; K21.9 Gastro-esophageal reflux disease without esophagitis; F41.9 Anxiety disorder, unspecified; F32.9 Major depressive disorder, single episode, unspecified; Z79.899 Other long term (current) drug therapy; Z88.1 Allergy status to other antibiotic agents; Z88.2 Allergy status to sulfonamides; Z91.010 Allergy to peanuts; Z91.030 Bee allergy status; Z91.018 Allergy to other foods
CPT/HCPCS: 99283; 96372 ×2; J1200; J2930

== ENCOUNTER 2022-04-24 18:50 | Emergency (ER) | payer MEDICAID, OTHER ==
[2022-04-24 18:57] VITALS: BP 114/72; PULSE 72; RESP 18; TEMP 98.4
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
[2022-04-24] MEDS ORDERED: ACETAMINOPHEN TAB 500 MG TAB PO STA (20:23)
[2022-04-24 20:28] LABS: Appearance,Urine Clear (Clear); Basophils # (A) 0.1 k/uL (0-0.2); Basophils % (A) 1 %; Bilirubin,Urine Negative (Negative); Blood,Urine Negative (Negative); Color,Urine Colorless; Eosinophils # (A) 0.1 k/uL (0-0.7); Eosinophils % (A) 1 %; Glucose,Urine (UA) Negative (Negative); HCT 37.9 % (34.0-46.0); HGB 11.8 gm/dL (11.4-16.0); Ketones,Urine Negative (Negative); Leukocyte Esterase,Urine Negative (Negative); Lymphocytes # (A) 2.8 k/uL (1.0-4.8); Lymphocytes % (A) 25 %; MCH 26.2 pg (25.0-35.0); MCHC 31.2 g/dL (31.0-37.0); MCV 84.2 fL (80.0-100.0); Mean Platelet Volume 7.6; Monocytes # (A) 0.5 k/uL (0-1.0); Monocytes % (A) 5 %; Neutrophils # (A) 7.4 k/uL (1.3-7.7); Neutrophils % (A) 67 %; Nitrite,Urine Negative (Negative); PH, Urine 6.5 (5.0-8.0); Platelet Count 336 k/uL (150-450); Protein,Urine Negative (Negative); RDW 13.4 % (11.5-15.5); Specific Gravity,Urine 1.005 (1.001-1.035); Urobilinogen,Urine <2.0 mg/dL (<2.0)
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
[2022-04-24 20:37] LABS: African American GFR (CKD) >90 (>60 ml/min/1.73 sqM); Anion Gap 7 mmol/L; Blood Urea Nitrogen 12 mg/dL (7-17); Calcium 8.9 mg/dL (8.4-10.2); Carbon Dioxide 23 mmol/L (22-30); Chloride 108 mmol/L (98-107); Glucose 91 mg/dL (74-99); Non-African American GFR(CKD) >90 (>60 ml/min/1.73 sqM); Potassium 3.9 mmol/L (3.5-5.1); Sodium 138 mmol/L (137-145)
[2022-04-24] MEDS ORDERED: CYCLOBENZAPRINE 10MG STARTER 3 TAB BTL PO STA (21:25)
[2022-04-24] MEDS ORDERED: KETOROLAC 15 MG/ML 1 ML VIAL IVP STA (21:25)
[2022-04-24] MEDS ORDERED: BACITRACIN OINT 1 EACH PACKET TOPICAL ONE (21:25)
== END 2022-04-24 21:50 | disposition home or self-care (01) ==
LOC: EC 18:50
DX: S00.01XA Abrasion of scalp, initial encounter (principal); M62.830 Muscle spasm of back; J45.909 Unspecified asthma, uncomplicated; K21.9 Gastro-esophageal reflux disease without esophagitis; Z79.51 Long term (current) use of inhaled steroids; V49.40XA Driver injured in collision with unspecified motor vehicles in traffic accident, initial encounter; Y92.410 Unspecified street and highway as the place of occurrence of the external cause
CPT/HCPCS: 36415; 80048; 85025; 81003; 72125; 70450; 99284; 96374; J1885

== ENCOUNTER 2023-04-14 19:31 | Emergency (ER) | payer BC, OTHER ==
[2023-04-14] MEDS ORDERED: KETOROLAC 15 MG/ML 1 ML VIAL IM STA (20:26)
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
--- NOTE | 2023-04-14 21:08 | ED ---
Upper Extremity HPI - General Chief Complaint: Extremity Injury, Upper Stated Complaint: R Arm Pain & Numbness Time Seen by Provider: 04/14/23 20:22 Source: patient Mode of arrival: ambulatory Limitations: no limitations - History of Present Illness Initial Comments: Patient is a 22-year-old female who presents to the emergency department for right shoulder pain. Patient states she was playing softball and swung the bat today when she heard a pop in her shoulder causing pain in her shoulder and down her upper arm. Patient also had numbness and tingling which has improved since the injury. She continues to have a lot of pain in her shoulder which is worse with shoulder flexion. - Related Data Home Medications Medication Instructions Recorded Confirmed Albuterol Sulfate [Ventolin HFA] 1 - 2 puff INHALATION RT-Q6H PRN 09/23/20 04/24/22 Previous Rx's Medication Instructions Recorded Cyclobenzaprine [Flexeril] 10 mg PO TID PRN #15 tab 04/24/22 Ibuprofen [Motrin] 600 mg PO Q6HR PRN #30 tab 04/14/23 Allergies Allergy/AdvReac Type Severity Reaction Status Date / Time bee venom protein (honey bee) Allergy Rash/Hives Verified 04/14/23 19:33 coconut Allergy Rash/Hives Verified 04/14/23 19:33 peanut Allergy Nausea & Verified 04/24/22 20:52 Vomiting sulfamethoxazole Allergy Rash/Hives Verified 04/14/23 19:33 [From Bactrim] trimethoprim [From Bactrim] Allergy Rash/Hives Verified 04/14/23 19:33 Review of Systems ROS Statement: Those systems with pertinent positive or pertinent negative responses have been documented in the HPI. ROS Other: All systems not noted in ROS Statement are negative. Past Medical History Past Medical History: Asthma, GERD/Reflux Additional Past Medical History / Comment(s): nausea History of Any Multi-Drug Resistant Organisms: None Reported Past Surgical History: Ear Surgery Additional Past Surgical History / Comment(s): tubes in Patricio ears, wisdom teeth, Past Anesthesia/Blood Transfusion Reactions: No Reported Reaction Past Psychological History: Anxiety, Depression Smoking Status: Never smoker Past Alcohol Use History: None Reported Past Drug Use History: None Reported - Past Family History Mother Family Medical History: No Reported History General Exam Limitations: no limitations General appearance: alert, in no apparent distress Head exam: Present: atraumatic, normocephalic, normal inspection Respiratory exam: Present: normal lung sounds bilaterally. Absent: respiratory distress, wheezes, rales, rhonchi, stridor Cardiovascular Exam: Present: regular rate, normal rhythm, normal heart sounds. Absent: systolic murmur, diastolic murmur, rubs, gallop, clicks Right Shoulder Exam: Present: normal inspection, tenderness over AC joint. Absent: full ROM (limited due to pain ), swelling, laceration, ecchymosis, deformity, crepitus, dislocation Upper Arm exam: Present: normal inspection, full ROM. Absent: tenderness, swelling Neurosensory exam: Present: radial nerve intact, ulnar nerve intact, median nerve intact Vascular: Present: normal capillary refill Neurological exam: Present: alert, oriented X3, CN II-XII intact Psychiatric exam: Present: normal affect, normal mood Course Vital Signs 04/14/23 04/14/23 19:33 21:15 Temperature 98.3 F 98.1 F Pulse Rate 73 76 Respiratory 18 16 Rate Blood Pressure 137/90 132/72 O2 Sat by Pulse 95 99 Oximetry Medical Decision Making - Medical Decision Making Was pt. sent in by a medical professional or institution (, PA, CHILD AND YOUTH PROGRAM ASSISTANT, urgent care, hospital, or assisted...) When possible be specific @ -No Did you speak to anyone other than the patient for history (EMS, parent, family, police, friend...)? What history was obtained from this source @ -No Did you review nursing and triage notes (agree or disagree)? Why? @ -I reviewed and agree with nursing and triage notes Were old charts reviewed (outside hosp., previous admission, EMS record, old EKG, old radiological studies, urgent care reports/EKG's, assisted records)? Report findings @ -No old charts were reviewed Differential Diagnosis (chest pain, altered mental status, abdominal pain women, abdominal pain men, vaginal bleeding, weakness, fever, dyspnea, syncope, headache, dizziness, GI bleed, back pain, seizure, CVA, palpatations, mental health)? @ -Fracture, contusion, sprain. This list is not meant to be all-inclusive EKG interpreted by me (3pts min.). @ -As above X-rays interpreted by me (1pt min.). @ -Yes, no evidence of fracture or dislocation CT interpreted by me (1pt min.). @ -None done U/S interpreted by me (1pt. min.). @ -None done What testing was considered but not performed or refused? (CT, X-rays, U/S, labs)? Why? @ -None What meds were considered but not given or refused? Why? @ -None Did you discuss the management of the patient with other professionals (professionals i.e. DrJudy, PA, CHILD AND YOUTH PROGRAM ASSISTANT, lab, RT, psych nurse, delinquency prevention social worker, denture contour wire specialist, teacher, court officer, keycase assembler)? Give summary @ -No Was smoking cessation discussed for >3mins.? @ -No Was critical care preformed (if so, how long)? @ -No Were there social determinants of health that impacted care today? How? (Ho melessness, low income, unemployed, alcoholism, drug addiction, transportation, low edu. Level, literacy, decrease access to med. care, prison, rehab)? @ -No Was there de-escalation of care discussed even if they declined (Discuss DNR or withdrawal of care, Hospice)? DNR status @ -No What co-morbidities impacted this encounter? (DM, HTN, Smoking, COPD, CAD, Cancer, CVA, ARF, Chemo, Hep., AIDS, mental health diagnosis, sleep apnea, morbid obesity)? @ -None Was patient admitted / discharged? Hospital course, mention meds given and route, prescriptions, significant lab abnormalities, going to OR and other pertinent info. @ -Discharged. Patient placed in sling for shoulder sprain. No fracture on x- ray. We discussed symptomatic care in detail patient to follow-up with personal injury law specialist Undiagnosed new problem with uncertain prognosis? @ -No Drug Therapy requiring intensive monitoring for toxicity (Heparin, Nitro, Insulin, Cardizem)? @ -No] Were any procedures done? @ -[No] Diagnosis/symptom? @ -Right shoulder sprain Acute, or Chronic, or Acute on Chronic? @ -[Acute Uncomplicated (without systemic symptoms) or Complicated (systemic symptoms)? @ -Uncomplicated Side effects of treatment? @ -[No] Exacerbation, Progression, or Severe Exacerbation? @ -[No] Poses a threat to life or bodily function? How? (Chest pain, [place], [place], pneumonia, PE, COPD, DKA, ARF, appy, cholecystitis, CVA, Diverticulitis, Homicidal, Suicidal, threat to staff... and all critical care pts) @ -[No] Dr. Gonzalez is my attending Disposition Clinical Impression: Sprain of right shoulder Disposition: HOME SELF-CARE Condition: Good Additional Instructions: Ice the injury for the next 24-48 hours. If symptoms continue after, apply warm compress. Take Tylenol or Motrin as needed for pain. Use sling as needed. I encourage light stretching as pain tolerates. Follow-up with personal injury law specialist in 1 to 2 days. Return to the emergency department if you experience new, concerning, or worsening symptoms. Prescriptions: Ibuprofen [Motrin] 600 mg PO Q6HR PRN #30 tab PRN Reason: Pain Is patient prescribed a controlled substance at d/c from ED?: No Referrals: Tiffanie Stoll III, MD [Primary Care Provider] - 1-2 days Mary Bro DO [Doctor of Osteopathic Medicine] - 1-2 days
[2023-04-14 21:18] VITALS: BP 132/72; PULSE 76; RESP 16; TEMP 98.1
== END 2023-04-14 21:18 | disposition home or self-care (01) ==
LOC: EC 19:31
DX: S43.401A Unspecified sprain of right shoulder joint, initial encounter (principal); J45.909 Unspecified asthma, uncomplicated; F41.9 Anxiety disorder, unspecified; F32.A Depression, unspecified; Z91.030 Bee allergy status; Z88.2 Allergy status to sulfonamides; Z91.010 Allergy to peanuts; Z91.018 Allergy to other foods; Z79.899 Other long term (current) drug therapy; W21.11XA Struck by baseball bat, initial encounter; Y93.64 Activity, baseball
CPT/HCPCS: 73060; 99284; 96372; J1885

== ENCOUNTER 2023-09-13 13:33 | Emergency (ER) | payer BC ==
[2023-09-13 13:46] VITALS: RESP 18
[2023-09-13] MEDS ORDERED: diphenhydrAMINE 50 MG/ML 1 ML VIAL IVP STA (13:57)
[2023-09-13] MEDS ORDERED: METOCLOPRAMIDE 5 MG/ML 2 ML VIAL IVP STA (13:57)
[2023-09-13] MEDS ORDERED: KETOROLAC 15 MG/ML 1 ML VIAL IVP STA (13:57)
[2023-09-13] MEDS ORDERED: DEXAMETHASONE SOD PHOSPHATE 10 MG/ML 1 ML VIAL IVP STA (13:57)
[2023-09-13] MEDS ORDERED: SODIUM CHLORIDE 0.9% 1,000 ML IV STA (13:57)
[2023-09-13 14:27] LABS: Basophils % (A) 0 %; Eosinophils # (A) 0.1 k/uL (0-0.7); Eosinophils % (A) 1 %; HCT 37.7 % (34.0-46.0); HGB 12.8 gm/dL (11.4-16.0); Lymphocytes # (A) 0.4 k/uL (1.0-4.8); Lymphocytes % (A) 8 %; MCH 27.6 pg (25.0-35.0); MCHC 33.9 g/dL (31.0-37.0); MCV 81.4 fL (80.0-100.0); Mean Platelet Volume 7.3; Monocytes # (A) 0.3 k/uL (0-1.0); Monocytes % (A) 5 %; Neutrophils # (A) 4.9 k/uL (1.3-7.7); Neutrophils % (A) 86 %; Platelet Count 265 k/uL (150-450); RBC 4.62 m/uL (3.80-5.40); RDW 13.4 % (11.5-15.5); WBC 5.8 k/uL (3.8-10.6)
[2023-09-13 14:51] LABS: ALT 26 U/L (4-34); AST 28 U/L (14-36); African American GFR (CKD) >90 (>60 ml/min/1.73 sqM); Albumin 4.6 g/dL (3.5-5.0); Alkaline Phosphatase 73 U/L (38-126); Anion Gap 13 mmol/L; Blood Urea Nitrogen 8 mg/dL (7-17); C Reactive Protein 3.1 mg/dL (<1.0); Calcium 9.4 mg/dL (8.4-10.2); Carbon Dioxide 21 mmol/L (22-30); Chloride 104 mmol/L (98-107); Glucose 82 mg/dL (74-99); HCG,Qualitative Serum Not Detected; Non-African American GFR(CKD) >90 (>60 ml/min/1.73 sqM); Potassium 3.5 mmol/L (3.5-5.1); Sodium 138 mmol/L (137-145); Total Bilirubin 0.6 mg/dL (0.2-1.3); Total Protein 7.8 g/dL (6.3-8.2)
--- NOTE | 2023-09-13 15:06 | ED ---
Headache HPI - General Chief Complaint: Headache Stated Complaint: migraine Time Seen by Provider: 09/13/23 13:52 Source: patient, RN notes reviewed Mode of arrival: ambulatory Limitations: no limitations - History of Present Illness Initial Comments: This is a 23-year-old female who presents to the emergency department for a headache. Patient reports a sudden onset headache beginning last night when she was getting ready for bed. Believes that this is probably the worst headache of her life. She tried [id number] medications with no relief in symptoms. States that this encompasses her whole head. Reports associated nausea and photophobia. Feels like the pain is starting to go into her jaw. She does have some mild neck pain but denies any neck stiffness or difficulty moving her head. She has not measured any fevers or chills or had any URI symptoms. States that she went to urgent care initially, and was instructed to come here for further evaluation and management. MD Complaint: headache - Related Data Home Medications Medication Instructions Recorded Confirmed Albuterol Sulfate [Ventolin HFA] 1 - 2 puff INHALATION RT-Q6H PRN 09/23/20 04/24/22 Previous Rx's Medication Instructions Recorded Cyclobenzaprine [Flexeril] 10 mg PO TID PRN #15 tab 04/24/22 Ibuprofen [Motrin] 600 mg PO Q6HR PRN #30 tab 04/14/23 Ketorolac [Toradol] 10 mg PO Q6HR PRN #15 tab 09/13/23 Ondansetron Odt [Zofran Odt] 4 mg PO Q8HR PRN #20 tab 09/13/23 Allergies Allergy/AdvReac Type Severity Reaction Status Date / Time bee venom protein (honey bee) Allergy Rash/Hives Verified 09/13/23 13:43 coconut Allergy Rash/Hives Verified 09/13/23 13:43 peanut Allergy Nausea & Verified 09/13/23 13:43 Vomiting sulfamethoxazole Allergy Rash/Hives Verified 09/13/23 13:43 [From Bactrim] trimethoprim [From Bactrim] Allergy Rash/Hives Verified 09/13/23 13:43 Review of Systems ROS Statement: Those systems with pertinent positive or pertinent negative responses have been documented in the HPI. ROS Other: All systems not noted in ROS Statement are negative. Past Medical History Past Medical History: Asthma, GERD/Reflux Additional Past Medical History / Comment(s): nausea History of Any Multi-Drug Resistant Organisms: None Reported Past Surgical History: Ear Surgery Additional Past Surgical History / Comment(s): tubes in Patricio ears, wisdom teeth, Past Anesthesia/Blood Transfusion Reactions: No Reported Reaction Past Psychological History: Anxiety, Depression Smoking Status: Never smoker Past Alcohol Use History: None Reported Past Drug Use History: None Reported - Past Family History Mother Family Medical History: No Reported History General Exam Limitations: no limitations General appearance: alert, in no apparent distress Head exam: Present: atraumatic, normocephalic, normal inspection Eye exam: Present: normal appearance, PERRL, EOMI. Absent: scleral icterus, conjunctival injection, periorbital swelling ENT exam: Present: normal exam, normal oropharynx, mucous membranes moist, TM's normal bilaterally, normal external ear exam Neck exam: Present: normal inspection, full ROM. Absent: tenderness, meningismus, lymphadenopathy Respiratory exam: Present: normal lung sounds bilaterally. Absent: respiratory distress, wheezes, rales, rhonchi, stridor Cardiovascular Exam: Present: regular rate, normal rhythm, normal heart sounds. Absent: systolic murmur, diastolic murmur, rubs, gallop, clicks Neurological exam: Present: alert, oriented X3, CN II-XII intact Psychiatric exam: Present: normal affect, normal mood Skin exam: Present: warm, dry, intact, normal color. Absent: rash Course Vital Signs 09/13/23 09/13/23 13:41 16:31 Temperature 99.6 F 98.7 F Pulse Rate 107 H 89 Respiratory 18 18 Rate Blood Pressure 133/87 116/77 O2 Sat by Pulse 99 100 Oximetry Medical Decision Making - Medical Decision Making This is a 23-year-old female who presents to the emergency department for a headache. Was pt. sent in by a medical professional or institution? @ -No Did you speak to anyone other than the patient for history? @ -No Did you review nursing and triage notes? @ -Yes, and I agree, it is accurate with regards to the patient's symptoms. Were old charts reviewed? @ -No Differential Diagnosis? @ -Differential Headache: Migraine, tension, cluster, carbon monoxide, central venous thrombosis, pension karma temporal arteritis, acute closure glaucoma, intercranial hemorrhage, m astoiditis, sinusitis, head injury, this is not meant to be an all-inclusive list. EKG interpreted by me (3pts min.)? @ -Not obtained X-rays interpreted by me (1pt min.)? @ -Not obtained CT interpreted by me (1pt min.)? @ -Computed tomography scan of the brain and CT angiogram of the head and neck obtained. My interpretation identifies no evidence of an acute intracranial hemorrhage or aneurysm. U/S interpreted by me (1pt. min.)? @ -Not obtained What testing was considered but not performed? (CT, X-rays, U/S, labs)? Why? @ -None What meds were considered but not given? Why? @ -None Did you discuss the management of the patient with other professionals? @ -No Did you reconcile home meds? @ -No Was smoking cessation discussed for >3mins.? @ -No Was critical care preformed (if so, how long)? @ -No Were there social determinants of health that impacted care today? How? (Homelessness, low income, unemployed, alcoholism, drug addiction, transportation, low edu. Level, literacy, decrease access to med. care, custodial, rehab)? @ -No Was there de-escalation of care discussed even if they declined? (Discuss DNR or withdrawal of care, Hospice)? @ -No What co-morbidities impacted this encounter? (DM, HTN, Smoking, COPD, CAD, Cancer, CVA, Hep., AIDS, mental health diagnosis, sleep apnea, morbid obesity)? @ -None Was patient admitted / discharged? @ -Discharged. Lab work obtained and found to be nonactionable. Covid, influenza, and RSV testing were negative. Given that this may be the worst headache of her life, we did proceed with a computed tomography scan of the brain and CT angiogram of the head and neck. This revealed no acute process. Patient treated with a migraine cocktail consisting of IV fluids, Toradol, Decadron, Reglan, and Benadryl, and had essentially resolution of symptoms. She overall felt much better and stable for discharge home. Prescription for Toradol and Zofran provided with dosing instructions reviewed in the event symptoms return. Patient otherwise discharged home in stable condition. Undiagnosed new problem with uncertain prognosis? @ -None Drug Therapy requiring intensive monitoring for toxicity (Heparin, Nitro, Insulin, Cardizem)? @ -None Were any procedures done? @ -None Diagnosis/symptom? @ -Migraine headache Acute, or Chronic, or Acute on Chronic? @ -Acute Uncomplicated (without systemic symptoms) or Complicated (systemic symptoms)? @ -Uncomplicated Side effects of treatment? @ -None Exacerbation, Progression, or Severe Exacerbation] @ -Not applicable Poses a threat to life or bodily function? @ -No Return precautions reviewed in depth, the patient is instructed to return to the emergency department with any new, worsening, or concerning symptoms. Patient verbalized understanding. This case was discussed in detail with the attending ED physician, Dr. Recio. Presentation, findings, and treatment plan discussed in detail as well. - Lab Data Result diagrams: 09/13/23 14:08 09/13/23 14:08 Lab Results 09/13/23 09/13/23 09/13/23 Range/Units 14:08 14:08 14:08 WBC 5.8 (3.8-10.6) k/uL RBC 4.62 (3.80-5.40) m/uL Hgb 12.8 (11.4-16.0) gm/dL Hct 37.7 (34.0-46.0) % MCV 81.4 (80.0-100.0) fL MCH 27.6 (25.0-35.0) pg MCHC 33.9 (31.0-37.0) g/dL RDW 13.4 (11.5-15.5) % Plt Count 265 (150-450) k/uL MPV 7.3 Neutrophils % 86 % Lymphocytes % 8 % Monocytes % 5 % Eosinophils % 1 % Basophils % 0 % Neutrophils # 4.9 (1.3-7.7) k/uL Lymphocytes # 0.4 L (1.0-4.8) k/uL Monocytes # 0.3 (0-1.0) k/uL Eosinophils # 0.1 (0-0.7) k/uL Basophils # 0.0 (0-0.2) k/uL ESR 45 H (0-20) mm/Hr Sodium 138 (137-145) mmol/L Potassium 3.5 (3.5-5.1) mmol/L Chloride 104 (98-107) mmol/L Carbon Dioxide 21 L (22-30) mmol/L Anion Gap 13 mmol/L BUN 8 (7-17) mg/dL Creatinine 0.65 (0.52-1.04) mg/dL Est GFR (CKD-EPI)AfAm >90 (>60 ml/min/1.73 sqM) Est GFR (CKD-EPI)NonAf >90 (>60 ml/min/1.73 sqM) Glucose 82 (74-99) mg/dL Plasma Lactic Acid Maynor 0.7 (0.7-2.0) mmol/L Calcium 9.4 (8.4-10.2) mg/dL Total Bilirubin 0.6 (0.2-1.3) mg/dL AST 28 (14-36) U/L ALT 26 (4-34) U/L Alkaline Phosphatase 73 (38-126) U/L C-Reactive Protein 3.1 H (<1.0) mg/dL Total Protein 7.8 (6.3-8.2) g/dL Albumin 4.6 (3.5-5.0) g/dL HCG, Qual Not Detected Influenza Type A (PCR) (Not Detectd) Influenza Type B (PCR) (Not Detectd) RSV (PCR) (Not Detectd) SARS-CoV-2 (PCR) (Not Detectd) 09/13/23 Range/Units 14:57 WBC (3.8-10.6) k/uL RBC (3.80-5.40) m/uL Hgb (11.4-16.0) gm/dL Hct (34.0-46.0) % MCV (80.0-100.0) fL MCH (25.0-35.0) pg MCHC (31.0-37.0) g/dL RDW (11.5-15.5) % Plt Count (150-450) k/uL MPV Neutrophils % % Lymphocytes % % Monocytes % % Eosinophils % % Basophils % % Neutrophils # (1.3-7.7) k/uL Lymphocytes # (1.0-4.8) k/uL Monocytes # (0-1.0) k/uL Eosinophils # (0-0.7) k/uL Basophils # (0-0.2) k/uL ESR (0-20) mm/Hr Sodium (137-145) mmol/L Potassium (3.5-5.1) mmol/L Chloride (98-107) mmol/L Carbon Dioxide (22-30) mmol/L Anion Gap mmol/L BUN (7-17) mg/dL Creatinine (0.52-1.04) mg/dL Est GFR (CKD-EPI)AfAm (>60 ml/min/1.73 sqM) Est GFR (CKD-EPI)NonAf (>60 ml/min/1.73 sqM) Glucose (74-99) mg/dL Plasma Lactic Acid Maynor (0.7-2.0) mmol/L Calcium (8.4-10.2) mg/dL Total Bilirubin (0.2-1.3) mg/dL AST (14-36) U/L ALT (4-34) U/L Alkaline Phosphatase (38-126) U/L C-Reactive Protein (<1.0) mg/dL Total Protein (6.3-8.2) g/dL Albumin (3.5-5.0) g/dL HCG, Qual Influenza Type A (PCR) Not Detected (Not Detectd) Influenza Type B (PCR) Not Detected (Not Detectd) RSV (PCR) Not Detected (Not Detectd) SARS-CoV-2 (PCR) Not Detected (Not Detectd) - Radiology Data Radiology results: report reviewed, image reviewed Disposition Clinical Impression: Migraine headache Disposition: HOME SELF-CARE Instructions (If sedation given, give patient instructions): Acute Headache (ED) Additional Instructions: Return to the emergency department with any new, worsening, or concerning symptoms. If the headache returns, you can try taking the Toradol up to every 6 hours as needed for pain relief. You may take this with Tylenol, however do not take it with any other anti-inflammatories such as ibuprofen, take one or the other. You can take the Zofran up to every 8 hours as needed for the nausea and vomiting. Follow up with your primary care provider in 1-2 days. Prescriptions: Ketorolac [Toradol] 10 mg PO Q6HR PRN #15 tab PRN Reason: Pain Ondansetron Odt [Zofran Odt] 4 mg PO Q8HR PRN #20 tab PRN Reason: Nausea And Vomiting Is patient prescribed a controlled substance at d/c from ED?: No Referrals: Julio César Brown DO [Primary Care Provider] - 1-2 days
--- NOTE | 2023-09-13 15:48 | CT ---
EXAMINATION TYPE: CT brain wo con DATE OF EXAM: 09/13/2023 COMPARISON: 04/24/2022 HISTORY: 23-year-old female "Worst headache of life" since 8 pm last night TECHNIQUE: Examination was done in axial plane without intravenous contrast. Coronal and sagittal r econstructions performed. CT DLP: 1029.9 mGycm Automated exposure control for dose reduction was used. FINDINGS: There is no evidence of acute intracranial hemorrhage, acute ischemic changes, mass, mass-effect, or extra-axial fluid collection. There is no effacement of cerebral sulci or basal subarachnoid cister ns. There is no hydrocephalus. There is no midline shift. Candelario-white matter distinction is preserv ed. Slight asymmetrically smaller left lateral ventricle suggests a congenital basis for the asymmetry. Paranasal sinuses and mastoid air cells are well pneumatized. Orbits and globes are intact. IMPRESSION: No acute intracranial abnormality seen.
--- NOTE | 2023-09-13 15:54 | CT ---
EXAMINATION TYPE: CT angio head neck DATE OF EXAM: 09/13/2023 COMPARISON: CT head same day HISTORY: 23-year-old female "Worst headache of life" since 8 pm last night TECHNIQUE: Contiguous axial scanning of the head and neck performed with IV Contrast, patient injecte d with 65 cc with 50 cc saline mL of Isovue 370. Coronal/sagittal reconstructions performed. 3-D anabell nstructions generated on a dedicated independent workstation. CT DLP: 533.8 mGycm Automated exposure control for dose reduction was used. FINDINGS: NECK: Strandy dependent atelectasis in the visualized upper lungs. Some residual thymic tissue anterior med iastinum in keeping the patient's relatively young age. Conventional arch vessel branching anatomy. Dominant left vertebral artery. Both vertebral arteries are patent throughout their course. The bilateral common and bilateral internal carotid arteries are widely patent. NASCET criteria was utilized. There is moderate bilateral palatine tonsillar hypertrophy. HEAD: Dominant left vertebral artery. The V4 segment after the PICA takeoff becomes even more hypoplastic. Otherwise, vertebral and basilar arteries as well as the remainder of the posterior circulation remai ns patent. The bilateral internal carotid arteries and remainder of the anterior circulation is patent. Dural venous sinuses are patent. IMPRESSION: 1. NECK: WIDELY PATENT VERTEBRAL AND CAROTID ARTERIES OF THE NECK. DOMINANT LEFT VERTEBRAL ARTERY. IN CIDENTAL MODERATE BILATERAL PALATINE TONSILLAR HYPERTROPHY. 2. HEAD: DOMINANT LEFT VERTEBRAL ARTERY. NO LARGE VESSEL INTRACRANIAL ARTERIAL OCCLUSION, SIGNIFICANT STENOSIS, OR ANEURYSMAL CHANGE IS SEEN.
[2023-09-13 16:43] VITALS: BP 116/77; PULSE 89; TEMP 98.7
[2023-09-13 19:13] LABS: Erythrocyte Sedimentation Rate 45 mm/Hr (0-20)
== END 2023-09-13 16:32 | disposition home or self-care (01) ==
LOC: EC 13:33
DX: G43.909 Migraine, unspecified, not intractable, without status migrainosus (principal); J35.1 Hypertrophy of tonsils; J45.909 Unspecified asthma, uncomplicated; Z79.899 Other long term (current) drug therapy; Z86.59 Personal history of other mental and behavioral disorders; Z91.030 Bee allergy status; Z91.018 Allergy to other foods; Z91.010 Allergy to peanuts; Z88.2 Allergy status to sulfonamides; Z88.8 Allergy status to other drugs, medicaments and biological substances; Z20.822 Contact with and (suspected) exposure to COVID-19; Z88.1 Allergy status to other antibiotic agents
CPT/HCPCS: 99284 ×2; 96374 ×2; 96375 ×4; 96361 ×2; 36415; 80053; 85652; 83605; 85025; 86140; 84703; 87636; 70496; 70450; 70498; J1200; J1100; J2765; J1885; Q9967

== ENCOUNTER 2023-10-30 03:30 | Emergency (ER) | payer BC ==
[2023-10-30 04:02] VITALS: PULSE 58; RESP 18; TEMP 97.7
[2023-10-30] MEDS ORDERED: IBUPROFEN 800 MG TAB PO STA (04:11)
[2023-10-30] MEDS ORDERED: ACETAMINOPHEN TAB 500 MG TAB PO STA (04:11)
[2023-10-30] MEDS ORDERED: ONDANSETRON ODT 4 MG TAB PO STA (04:11)
--- NOTE | 2023-10-30 07:11 | XR ---
EXAMINATION TYPE: XR ankle complete LT DATE OF EXAM: 10/30/2023 4:42 AM CLINICAL INDICATION:Female, 23 years old with history of pain; [facility] COMPARISON: 10/06/2019 TECHNIQUE: XR ankle complete LT; ankle is imaged in frontal, lateral and oblique projections. FINDINGS: There is no evidence of acute osseous pathology. The joint spaces are well-preserved without evidenc e of subluxation or dislocation. Kager's fat pad is intact. Mild soft tissue swelling around the ankl e. No radiopaque foreign bodies are identified. Calcaneal plantar spurring. IMPRESSION: 1. No evidence of acute fracture. 2. Subcutaneous swelling around the ankle likely secondary to underlying soft tissue injury.
--- NOTE | 2023-10-30 07:30 | ED ---
General Adult HPI - General Chief complaint: Extremity Injury, Lower Stated complaint: Fall, left ankle injury Time Seen by Provider: 10/30/23 04:05 Source: patient, RN notes reviewed, old records reviewed Mode of arrival: wheelchair Limitations: no limitations - History of Present Illness Initial comments: Patient is a 23-year-old female presents emergency Department complaining of left ankle pain. Patient fell going down the stairs this morning when getting ready to for work. Denies any other injuries. States she landed strangely in her left ankle. Is complaining of bilateral ankle pain as well as pain over the top of her ankle. Denies hitting her head. Denies loss conscious. He is not on blood thinners. No other acute complaints. Denies any numbness or sensory deficits the left foot. Pain with walking. Presents for further evaluation at this time. - Related Data Home Medications Medication Instructions Recorded Confirmed Albuterol Sulfate [Ventolin HFA] 1 - 2 puff INHALATION RT-Q6H PRN 09/23/20 04/24/22 Previous Rx's Medication Instructions Recorded Cyclobenzaprine [Flexeril] 10 mg PO TID PRN #15 tab 04/24/22 Ibuprofen [Motrin] 600 mg PO Q6HR PRN #30 tab 04/14/23 Ketorolac [Toradol] 10 mg PO Q6HR PRN #15 tab 09/13/23 Ondansetron Odt [Zofran Odt] 4 mg PO Q8HR PRN #20 tab 09/13/23 Allergies Allergy/AdvReac Type Severity Reaction Status Date / Time bee venom protein (honey bee) Allergy Rash/Hives Verified 10/30/23 03:55 coconut Allergy Rash/Hives Verified 10/30/23 03:55 peanut Allergy Nausea & Verified 10/30/23 03:55 Vomiting sulfamethoxazole Allergy Rash/Hives Verified 10/30/23 03:55 [From Bactrim] trimethoprim [From Bactrim] Allergy Rash/Hives Verified 10/30/23 03:55 Review of Systems ROS Statement: Those systems with pertinent positive or pertinent negative responses have been documented in the HPI. Review of Systems: CONST: Denies fever EYES: Denies blurry vision ENT: Denies nasal congestion C/V: Denies Chest pain RESP: Denies shortness of breath GI: Denies abdominal pain : Denies dysuria SKIN: Denies rash. MSK: Endorses Left ankle pain NEURO: Denies headache ROS Other: All systems not noted in ROS Statement are negative. Past Medical History Past Medical History: Asthma, GERD/Reflux Additional Past Medical History / Comment(s): nausea History of Any Multi-Drug Resistant Organisms: None Reported Past Surgical History: Ear Surgery Additional Past Surgical History / Comment(s): tubes in Patricio ears, wisdom teeth, Past Anesthesia/Blood Transfusion Reactions: No Reported Reaction Past Psychological History: Anxiety, Depression Smoking Status: Never smoker, Vaper Past Alcohol Use History: None Reported Past Drug Use History: None Reported - Past Family History Mother Family Medical History: No Reported History General Exam - General Exam Comments Initial Comments: General: Appears in no acute distress. HEAD: Normal with no signs of head trauma. EYES: EOMI. ENT: Hearing grossly intact. RESPIRATORY: No respiratory distress. C/V: Regular rate and rhythm. ABD: Abdomen is nondistended. EXT: Edema over the lateral aspect of the left ankle, tenderness to palpation ov er the lateral malleolus. No base of the foot tenderness to palpation. No medial malleolar tenderness to palpation. Neurovascular intact of the left lower extremity distal to the injury. No midline cervical, lumbar, thoracic spine tenderness to palpation. Pelvis is stable. Left knee no obvious injury or tenderness. Normal range of motion. SKIN: No rashes or lesions observed on exposed skin. NEURO: Alert and oriented. Limitations: no limitations Course Vital Signs 10/30/23 10/30/23 03:50 07:42 Temperature 97.7 F Pulse Rate 58 L 58 L Respiratory 18 18 Rate Blood Pressure 106/65 107/64 O2 Sat by Pulse 96 97 Oximetry Medical Decision Making - Medical Decision Making Was pt. sent in by a medical professional or institution (, PA, VARNISH MIXER, urgent care, hospital, or long term...) When possible be specific @ -No Did you speak to anyone other than the patient for history (EMS, parent, family, police, friend...)? What history was obtained from this source @ -No Did you review nursing and triage notes (agree or disagree)? Why? @ -I reviewed and agree with nursing and triage notes Were old charts reviewed (outside hosp., previous admission, EMS record, old EKG, old radiological studies, urgent care reports/EKG's, long term records)? Report findings @ -No old charts were reviewed Differential Diagnosis (chest pain, altered mental status, abdominal pain women, abdominal pain men, vaginal bleeding, weakness, fever, dyspnea, syncope, headache, dizziness, GI bleed, back pain, seizure, CVA, palpatations, mental health, musculoskeletal)? @ -Differential Musculoskeletal Muscular strain, contusion, ligament sprain, fracture, arthritis, septic arthritis, bursitis, cellulitis, muscle spasm, nerve compression, DVT, arterial occlusion, herpes zoster, electrolyte abnormality, tumor.... This is not meant to be in all inclusive list EKG interpreted by me (3pts min.). @ -None done X-rays interpreted by me (1pt min.). @ -Left ankle x-ray reveals soft tissue swelling but no obvious fracture or subluxation. CT interpreted by me (1pt min.). @ -None done U/S interpreted by me (1pt. min.). @ -None done What testing was considered but not performed or refused? (CT, X-rays, U/S, labs)? Why? @ -None What meds were considered but not given or refused? Why? @ -None Did you discuss the management of the patient with other professionals (professionals i.e. , PA, VARNISH MIXER, lab, RT, psych nurse, social media senior associate, package clerk, teacher, senior credit officer, case packer and sealer)? Give summary @ -No Was smoking cessation discussed for >3mins.? @ -No Was critical care preformed (if so, how long)? @ -No Were there social determinants of health that impacted care today? How? (Homelessness, low income, unemployed, alcoholism, drug addiction, transportation, low edu. Level, literacy, decrease access to med. care, prison, rehab)? @ -No Was there de-escalation of care discussed even if they declined (Discuss DNR or withdrawal of care, Hospice)? DNR status @ -No What co-morbidities impacted this encounter? (DM, HTN, Smoking, COPD, CAD, Cancer, CVA, ARF, Chemo, Hep., AIDS, mental health diagnosis, sleep apnea, morbid obesity)? @ -None Was patient admitted / discharged? Hospital course, mention meds given and route, prescriptions, significant lab abnormalities, going to OR and other pertinent info. @ -Based on the patient's presentation and physical exam, presents with left ankle injury. We will obtain an x-ray. She will also receive a dose of Tylenol and Motrin. She is requesting a dose of Zofran as well. She was in agreement this plan. Bowel sounds within acceptable limits. X-ray returns remarkable for suspected sprain is patient does have soft tissue swelling but no obvious fracture. I discussed results of the patient. She expressed understanding. She'll be discharged home at this time with crutches, a stirrup splint. Strict return precautions discussed. She will be given a work note. Recommended ice, elevation, relaxation for the rest of today as well as [id number] analgesic medications for treatment. I instructed the patient to follow up with their PCP in the next 1-3 days. I explained that the patient should return to the emergency department if they experience any worsening symptoms. Strict return precautions were discussed with the patient. The patient expressed understanding of these instructions. I answered all questions that the patient had. The patient was discharged home in good condition with their prescriptions and follow up information. Undiagnosed new problem with uncertain prognosis? @ -No Drug Therapy requiring intensive monitoring for toxicity (Heparin, Nitro, Insulin, Cardizem)? @ -No Were any procedures done? @ -No Diagnosis/symptom? @ -Left ankle sprain Acute, or Chronic, or Acute on Chronic? @ -Acute Uncomplicated (without systemic symptoms) or Complicated (systemic symptoms)? @ -Uncomplicated Side effects of treatment? @ -No Exacerbation, Progression, or Severe Exacerbation? @ -No Poses a threat to life or bodily function? How? (Chest pain, USA, SC, pneumonia, PE, COPD, DKA, ARF, appy, cholecystitis, CVA, Diverticulitis, Homicidal, Suicidal, threat to staff... and all critical care pts) @ -No Disposition Clinical Impression: Left ankle sprain Disposition: HOME SELF-CARE Condition: Good Instructions (If sedation given, give patient instructions): Ankle Sprain (DC) Is patient prescribed a controlled substance at d/c from ED?: No Referrals: Julio César Brown DO [Primary Care Provider] - 1-2 days Time of Disposition: 07:22
[2023-10-30 07:57] VITALS: BP 107/64
== END 2023-10-30 07:47 | disposition home or self-care (01) ==
LOC: EC 03:30
DX: S93.402A Sprain of unspecified ligament of left ankle, initial encounter (principal); J45.909 Unspecified asthma, uncomplicated; F17.290 Nicotine dependence, other tobacco product, uncomplicated; Z86.59 Personal history of other mental and behavioral disorders; Z91.030 Bee allergy status; Z88.2 Allergy status to sulfonamides; Z91.010 Allergy to peanuts; Z91.018 Allergy to other foods; W10.8XXA Fall (on) (from) other stairs and steps, initial encounter
CPT/HCPCS: 99283

== ENCOUNTER → 2025-01-14 | Outpatient (CLI) | payer BC ==
[2025-01-14 08:41] VITALS: BP 125/79; PULSE 61; RESP 16; TEMP 98
--- NOTE | 2025-01-14 13:45 | P.PAINPG ---
PQRS Measure Charge Sheet Comment: HISTORY OF PRESENT ILLNESS: A 24 yr old female as a referral from Dr Ya presents today w severe and chronic PHAN and neck pain > 3 mo secondary to Occipital Neuralgia, Cervicogenic PHAN for evaluation. Pt states pain level is provoked at 8 /10 in intensity, constant, localized in the upper neck, predominantly axial, sharp in character w occasional shooting pain towards the back of the ears L> R. Pain is provoked by rotation. Pain is alleviated by massage therapy x 8 wks which ended in Fall 2023, physician guided home exercises 5-6 times weekly since Fall 2023, medications, manual massage, repositioning and rest . PMH: OA, MDD/ Bipolar/ ADD/ ADHD, Asthma, GERD PSH: BL Myringotomy, Keyes Teeth Extractions SH: Never smoker, Vaper, No ETOH abuse, No illicit drug use FH: Non contributory All: See list Meds: See list REVIEW OF ORGAN SYSTEMS: CONSTITUTIONAL: No fevers or chills. No recent weight loss. NEUROLOGICAL: + numbness and tingling along the distal extremities. No seizure disorders or headaches. MUSCULOSKELETAL: + pain PSYCHIATRIC: Denies current depression or suicidal thoughts. Physical Examinations : Constitutional : Cooperative , not in acute distress . Neurologic : Cranial nerve II to XII intact. No focal ne urological deficits. Psychiatric : alert & oriented x 3. Matching mood & appropriate affect. Judgment & insight intact. Musculoskeletal : Cervical Spine +BL AALIYAH TTP Motor strength in the deltoid and biceps: Normal right side. Normal Left side Motor strength biceps and the wrist extensors: Normal right side . Normal left side Motor strength in the triceps muscle: Normal right side. Normal left side Deep tendon reflexes: Normal at the biceps. Normal at Brachioradialis. Normal at triceps Vertebral body tenderness to deep palpation over Cervical facet loading test: positive bilaterally Spurling test: positive bilaterally Neck distraction test: positive bilaterally Valerio sign: positive bilaterally Lumbar spine Motor strength lower extremities ,thigh and legs 5/5 Right side , 5/5 Left side Deep tendon reflexes : Normal Knee Jerk. Normal Ankle Jerk Vertebral body tenderness over Hodge Test positive Lumbar facet Loading Test: positive Right / positive Left Range of motion of the lumbar spine Flexion 30 degrees, extension 10 degrees Straight Leg Raise test: Left/ Right positive at degrees Spencer test: positive right / positive left. Severe tenderness over the Sacroiliac joint on the Right / Left sides Gaenslen test: positive bilaterally Seated flexion test: positive bilaterally. Sacral spine : Severe tenderness over the Sacroiliac joint: right side / left side Range of motion: Flexion of the lumbar spine <60 degrees Range of motion: Extension of the lumbar spine <20 degrees Gaenslen's Test positive Spencer test: positive right side / left side Thigh Thrust Test Sacral Thrust Test Imaging: CT non contrast brain from 09/13/23 reviewed Assessment/ Plan : Occipital Neuralgia, Cervigenic PHAN Recommendation of JAVIER FISCHER #1. Risks, benefits of procedure discussed and patient verbalized understanding. Admits to anti- coagulant use or medical history of diabetes. Protocol for discontinuation/ continuation of medications mark procedure discussed. All questions answered. I have spent greater than 30 minutes on patient care today. Dr Lord was available by phone for the evaluation of this patient. The time was used to review the medical records including relevant urine studies and Prescription history (MAPs), review of the available imaging, evaluation and examination of the patient, coordination of care with the medical staff and if applicable referring physicians, as well as creation of the medical record PQRS Narrative: Smoking Status Never smoker Home Medications: Ambulatory Orders Albuterol Sulfate [Ventolin HFA] 1 - 2 puff INHALATION RT-Q6H PRN 09/23/20 Cyclobenzaprine [Flexeril] 10 mg PO TID PRN #15 tab 04/24/22 Ibuprofen [Motrin] 600 mg PO Q6HR PRN #30 tab 04/14/23 Ketorolac [Toradol] 10 mg PO Q6HR PRN #15 tab 09/13/23 Ondansetron Odt [Zofran Odt] 4 mg PO Q8HR PRN #20 tab 09/13/23 Controlled Substance Measures - Controlled Substance Measures Is patient prescribed a controlled substance at discharge?: No
== END ==
LOC: PNWHC3 08:13
PROVIDERS: ATTEND Specialist
DX: M54.81 Occipital neuralgia (principal); G44.86 Cervicogenic headache; Z91.030 Bee allergy status; Z91.018 Allergy to other foods; Z91.010 Allergy to peanuts; Z88.2 Allergy status to sulfonamides
CPT/HCPCS: 99202

== ENCOUNTER 2025-02-05 12:53 | Day surgery (SDC) | payer BC ==
[2025-02-05 14:05] VITALS: RESP 16; TEMP 98.4
[2025-02-05 14:09] LABS: Glucose,Whole Blood 73 mg/dL (70-110)
[2025-02-05] MEDS ORDERED: methylPREDNISolone ACETATE 80 MG/ML 1 ML VIAL ONE (15:11)
[2025-02-05] MEDS ORDERED: ROPIVACAINE 5MG/ML 20ML VIAL ONE (15:11)
--- NOTE | 2025-02-05 15:15 | P.PCN ---
Description of Procedure: Preoperative diagnoses. Greater occipital neuralgia Postoperative diagnoses. Greater occipital neuralgia Procedure. Bilateral Greater occipital nerve block with local anesthetic and steroid. Anesthesia. Local infiltration of 1% lidocaine. Continuous pulse ox, EKG, blood pressure and verbal communication was maintained with the patient in the OR. . Estimated blood loss. Minimal. Procedure indication. The patient has a history of severe chronic neck pain ,and headache, diagnosed with occipital neuralgia. Exam was positive for severe tenderness over the occipital nerve, she will be a good candidate occipital nerve block. Patient failed conservative management. Discussed with the patient the procedure, alternative, complications including infection, bleeding, nerve damage, aggravation of pain all of which could be permanent. Patient understands and QUESTIONS were answered. Procedure description. After getting consent patient was taken to the OR , sitting position with head on a table . At the junction of RIGHT sternocleidomastoid muscle with trapezius muscle close to right superior nucheal line was identified, occipital artery was palpated. Just medial to the occipital artery 25-gauge needle attached to a syringe was introduced. Then after negative aspiration for heme and CSF and there was no paresthesia during the injection, 2 ml of Ropivacaine 0.5% and 40 mg of Depo-Medrol injected, the needle was removed. Entire same procedure was repeated for the LEFT Greater occipital nerve. The patient returned to supine position after the back was cleaned and a Band- Aid applied. Disposition. Patient tolerated the procedure well. No complication. Discharged home in stable condition.
[2025-02-05 15:33] VITALS: BP 121/78; PULSE 78
== END 2025-02-05 16:02 | disposition home or self-care (01) ==
LOC: ORPAIN 12:53
PROVIDERS: ATTEND Pain Medicine Interventional Pain Medicine
DX: M54.81 Occipital neuralgia (principal); Z79.1 Long term (current) use of non-steroidal anti-inflammatories (NSAID); Z91.030 Bee allergy status; Z91.010 Allergy to peanuts; Z88.1 Allergy status to other antibiotic agents; Z91.018 Allergy to other foods
CPT/HCPCS: 81025; 64405; J2795; J1010

== ENCOUNTER 2025-02-05 19:55 | Emergency (ER) | payer BC ==
--- NOTE | 2025-02-05 21:17 | ED ---
General Adult HPI - General Chief complaint: Headache Stated complaint: headache post injections Time Seen by Provider: 02/05/25 20:48 Source: patient, RN notes reviewed Mode of arrival: ambulatory Limitations: no limitations - History of Present Illness Initial comments: 24-year-old female presents to the emergency department for evaluation of headache. Patient states that she had occipital nerve injections today. She states that she had a bit of a headache following the procedure but about 30 minutes to 1 hour ago the pain got significantly worse. She notes that the pain feels like pressure in her head. States that she has photo sensitivity. - Related Data Home Medications Medication Instructions Recorded Confirmed Albuterol Sulfate [Ventolin HFA] 1 - 2 puff INHALATION RT-Q6H PRN 09/23/20 02/05/25 Dextroamphetamine/Amphetamine 15 mg PO DAILY 02/03/25 02/05/25 [Adderall Xr 15 mg Capsule] Escitalopram [Lexapro] 10 mg PO HS 02/03/25 02/05/25 Lumateperone Tosylate [Caplyta] 21 mg PO HS 02/03/25 02/05/25 hydrOXYzine HCL [Hydroxyzine HCl] 10 mg PO DIRECTED PRN 02/03/25 02/05/25 traZODone HCL [Desyrel] 25 mg PO HS 02/03/25 02/05/25 Previous Rx's Medication Instructions Recorded Ondansetron Odt [Zofran Odt] 4 mg PO Q8HR PRN #20 tab 09/13/23 Allergies Allergy/AdvReac Type Severity Reaction Status Date / Time bee venom protein (honey bee) Allergy Rash/Hives Verified 02/05/25 19:59 coconut Allergy Rash/Hives Verified 02/05/25 19:59 eletriptan Allergy Anaphylaxis Verified 02/05/25 19:59 peanut Allergy Nausea & Verified 02/05/25 19:59 Vomiting sulfamethoxazole Allergy Rash/Hives Verified 02/05/25 19:59 [From Bactrim] trimethoprim [From Bactrim] Allergy Rash/Hives Verified 02/05/25 19:59 Review of Systems ROS Statement: Those systems with pertinent positive or pertinent negative responses have been documented in the HPI. ROS Other: All systems not noted in ROS Statement are negative. Past Medical History Past Medical History: Asthma, GERD/Reflux Additional Past Medical History / Comment(s): nausea ongoing -possibly from anxiety& migraines History of Any Multi-Drug Resistant Organisms: None Reported Past Surgical History: Ear Surgery Additional Past Surgical History / Comment(s): tubes in Patricio ears, wisdom teeth, egd Past Anesthesia/Blood Transfusion Reactions: No Reported Reaction Past Psychological History: Anxiety, Bipolar, Depression Smoking Status: Vaper Past Alcohol Use History: Occasional Past Drug Use History: None Reported - Past Family History Mother Family Medical History: Diabetes Mellitus General Exam Limitations: no limitations General appearance: alert, in distress (d/t pain) Head exam: Present: atraumatic, normocephalic, other (Tenderness palpation over the occipital area of the scalp) Eye exam: Present: normal appearance, PERRL, EOMI. Absent: scleral icterus, conjunctival injection, periorbital swelling ENT exam: Present: normal exam, mucous membranes moist Respiratory exam: Present: normal lung sounds bilaterally. Absent: respiratory distress, wheezes, rales, rhonchi, stridor Cardiovascular Exam: Present: regular rate, normal rhythm, normal heart sounds. Absent: systolic murmur, diastolic murmur, rubs, gallop, clicks Extremities exam: Present: normal inspection, full ROM, normal capillary refill. Absent: tenderness, pedal edema, joint swelling, calf tenderness Back exam: Present: normal inspection Neurological exam: Present: alert, oriented X3, CN II-XII intact Psychiatric exam: Present: normal affect, normal mood Skin exam: Present: warm, dry, intact, normal color. Absent: rash Course Vital Signs 02/05/25 02/05/25 02/05/25 19:57 21:07 23:20 Temperature 98.3 F Pulse Rate 116 H 79 Respiratory 20 18 Rate Blood Pressure 163/139 122/79 112/71 O2 Sat by Pulse 99 99 Oximetry 02/06/25 00:06 Temperature 97.4 F L Pulse Rate 80 Respiratory 16 Rate Blood Pressure 126/78 O2 Sat by Pulse 98 Oximetry Medical Decision Making - Medical Decision Making Was pt. sent in by a medical professional or institution (, PA, BRAND DESIGNER, urgent care, hospital, or fdc...) When possible be specific @ -No Did you speak to anyone other than the patient for history (EMS, parent, family, police, friend...)? What history was obtained from this source @ -No Did you review nursing and triage notes (agree or disagree)? Why? @ -I reviewed and agree with nursing and triage notes Were old charts reviewed (outside hosp., previous admission, EMS record, old EKG, old radiological studies, urgent care reports/EKG's, fdc records)? Report findings @ -No old charts were reviewed Differential Diagnosis (chest pain, altered mental status, abdominal pain women, abdominal pain men, vaginal bleeding, weakness, fever, dyspnea, syncope, headache, dizziness, GI bleed, back pain, seizure, CVA, palpatations, mental health, musculoskeletal)? @ -Differential Headache: Migraine, tension, cluster, carbon monoxide, central venous thrombosis, pension karma temporal arteritis, acute closure glaucoma, intercranial hemorrhage, mastoiditis, sinusitis, head injury, this is not meant to be an all-inclusive list. EKG interpreted by me (3pts min.). @ -None X-rays interpreted by me (1pt min.). @ -None done CT interpreted by me (1pt min.). @ -CT of the brain and C-spine shows no evidence of acute process U/S interpreted by me (1pt. min.). @ -None done What testing was considered but not performed or refused? (CT, X-rays, U/S, labs)? Why? @ -None What meds were considered but not given or refused? Why? @ -None Did you discuss the management of the patient with other professionals (professionals i.e. , PA, BRAND DESIGNER, lab, RT, psych nurse, social service assistant, art sales consultant, teacher, traffic officer, protective services case worker)? Give summary @ -No Was smoking cessation discussed for >3mins.? @ -No Was critical care preformed (if so, how long)? @ -No Were there social determinants of health that impacted care today? How? (Homelessness, low income, unemployed, alcoholism, drug addiction, transporta tion, low edu. Level, literacy, decrease access to med. care, [facility], rehab)? @ -No Was there de-escalation of care discussed even if they declined (Discuss DNR or withdrawal of care, Hospice)? DNR status @ -No What co-morbidities impacted this encounter? (DM, HTN, Smoking, COPD, CAD, Cancer, CVA, ARF, Chemo, Hep., AIDS, mental health diagnosis, sleep apnea, morbid obesity)? @ -None Was patient admitted / discharged? Hospital course, mention meds given and route, prescriptions, significant lab abnormalities, going to OR and other pertinent info. @ -Discharge. Patient presented the emergency department for evaluation of headache following occipital nerve injections. CT of the brain and C-spine were obtained revealing no acute process.Laboratory studies obtained revealing WBC of 11.9, hemoglobin 12.8; CMP shows mild hyponatremia with a sodium of 135, normal coagulation studies. Patient's repeat vital signs within normal limits. Initially the patient was given morphine which did help the pain somewhat. Following the CT scan the patient was administered a migraine cocktail. She is feeling much better after this and will be discharged home. Patient is understanding agreeable with this plan. Patient stable at time of discharge. Case discussed with Dr. Presley Undiagnosed new problem with uncertain prognosis? @ -No Drug Therapy requiring intensive monitoring for toxicity (Heparin, Nitro, Insulin, Cardizem)? @ -No Were any procedures done? @ -No Diagnosis/symptom? @ -Headache Acute, or Chronic, or Acute on Chronic? @ -Acute Uncomplicated (without systemic symptoms) or Complicated (systemic symptoms)? @ -Uncomplicated Side effects of treatment? @ -No Exacerbation, Progression, or Severe Exacerbation? @ -No Poses a threat to life or bodily function? How? (Chest pain, [place], [place], pneumonia, PE, COPD, DKA, ARF, appy, cholecystitis, CVA, Diverticulitis, Homicidal, Suicidal, threat to staff... and all critical care pts) @ -No - Lab Data Result diagrams: 02/05/25 21:00 02/05/25 21:00 Lab Results 02/05/25 02/05/25 02/05/25 Range/Units 21:00 21:00 22:20 WBC 11.9 H (3.8-10.6) k/uL RBC 4.87 (3.80-5.40) m/uL Hgb 12.8 (11.4-16.0) gm/dL Hct 39.5 (34.0-46.0) % MCV 81.1 (80.0-100.0) fL MCH 26.3 (25.0-35.0) pg MCHC 32.4 (31.0-37.0) g/dL RDW 13.7 (11.5-15.5) % Plt Count 364 (150-450) k/uL MPV 7.5 Neutrophils % 84 % Lymphocytes % 12 % Monocytes % 3 % Eosinophils % 1 % Basophils % 0 % Neutrophils # 9.9 H (1.3-7.7) k/uL Lymphocytes # 1.4 (1.0-4.8) k/uL Monocytes # 0.3 (0-1.0) k/uL Eosinophils # 0.1 (0-0.7) k/uL Basophils # 0.0 (0-0.2) k/uL PT 10.3 (10.0-12.5) sec INR 0.9 (<1.2) APTT 24.7 (22.0-30.0) sec Sodium 135 L (137-145) mmol/L Potassium 4.4 (3.5-5.1) mmol/L Chloride 104 (98-107) mmol/L Carbon Dioxide 21 L (22-30) mmol/L Anion Gap 10 mmol/L BUN 10 (7-17) mg/dL Creatinine 0.58 (0.52-1.04) mg/dL Est GFR (CKD-EPI)AfAm >90 (>60 ml/min/1.73 sqM) Est GFR (CKD-EPI)NonAf >90 (>60 ml/min/1.73 sqM) Glucose 114 H (74-99) mg/dL Calcium 9.3 (8.4-10.2) mg/dL Total Bilirubin 0.5 (0.2-1.3) mg/dL AST 25 (14-36) U/L ALT 20 (4-34) U/L Alkaline Phosphatase 76 (38-126) U/L Total Protein 7.5 (6.3-8.2) g/dL Albumin 4.5 (3.5-5.0) g/dL Disposition Clinical Impression: Headache Disposition: HOME SELF-CARE Condition: Stable Instructions (If sedation given, give patient instructions): Acute Headache (ED) Additional Instructions: Please follow up with your doctor. Return to the emergency department for new or worsening symptoms. Is patient prescribed a controlled substance at d/c from ED?: No Referrals: Shawn Ya Jr, [Primary Care Provider] - 1-2 days
[2025-02-05] MEDS: MORPHINE SULFATE 4 MG/ML SYRINGE IVP STA (21:21)
[2025-02-05] MEDS: SODIUM CHLORIDE 0.9% 1,000 ML IV ONE (21:21)
[2025-02-05 21:22] LABS: Basophils % (A) 0 %; Eosinophils # (A) 0.1 k/uL (0-0.7); Eosinophils % (A) 1 %; HCT 39.5 % (34.0-46.0); HGB 12.8 gm/dL (11.4-16.0); Lymphocytes # (A) 1.4 k/uL (1.0-4.8); Lymphocytes % (A) 12 %; MCH 26.3 pg (25.0-35.0); MCHC 32.4 g/dL (31.0-37.0); MCV 81.1 fL (80.0-100.0); Mean Platelet Volume 7.5; Monocytes # (A) 0.3 k/uL (0-1.0); Monocytes % (A) 3 %; Neutrophils # (A) 9.9 k/uL (1.3-7.7); Neutrophils % (A) 84 %; Platelet Count 364 k/uL (150-450); RBC 4.87 m/uL (3.80-5.40); RDW 13.7 % (11.5-15.5); WBC 11.9 k/uL (3.8-10.6)
[2025-02-05] MEDS: ONDANSETRON 4 MG/2 ML VIAL IVP STA (21:30)
[2025-02-05 21:42] LABS: ALT 20 U/L (4-34); AST 25 U/L (14-36); African American GFR (CKD) >90 (>60 ml/min/1.73 sqM); Albumin 4.5 g/dL (3.5-5.0); Alkaline Phosphatase 76 U/L (38-126); Anion Gap 10 mmol/L; Blood Urea Nitrogen 10 mg/dL (7-17); Calcium 9.3 mg/dL (8.4-10.2); Carbon Dioxide 21 mmol/L (22-30); Chloride 104 mmol/L (98-107); Glucose 114 mg/dL (74-99); Non-African American GFR(CKD) >90 (>60 ml/min/1.73 sqM); Potassium 4.4 mmol/L (3.5-5.1); Sodium 135 mmol/L (137-145); Total Bilirubin 0.5 mg/dL (0.2-1.3); Total Protein 7.5 g/dL (6.3-8.2)
--- NOTE | 2025-02-05 22:21 | CT ---
EXAMINATION TYPE: CT brain cspine wo con DATE OF EXAM: 02/05/2025 10:17 PM COMPARISON: None. CLINICAL INDICATION: Female, 24 years old with history of pain, recent injections; Patient states paco t she had injections today for a headache and is now having pain., pain TECHNIQUE: Brain: Multiple axial CT images of the brain were obtained without IV contrast. Cspine: Axial CT images from the skull base to the inferior aspect of T2 we obtained without intraven ous contrast. Coronal and sagittal reformatted images were also reviewed. . CT DLP: 1217.9 mGycm, Automated exposure control for dose reduction was used. FINDINGS: Brain: Extra-axial spaces: No abnormal extra-axial fluid collections. Ventricular system: Within normal limits Cerebral parenchyma: No acute intraparenchymal hemorrhage or mass effect. The cameron-white junction is well differentiated. Cerebellum: Unremarkable. Mass effect: No evidence of midline shift. Intracranial vasculature: unremarkable Soft tissues: Normal. Calvarium/osseous structures: No depressed skull fracture. Paranasal sinuses and mastoid air cells: Clear. Visualized orbits: Orbital contents are intact. Cervical spine: Fracture: None. Osseous structures: Unremarkable Vertebral alignment: Within normal limits. Spinal canal/Neural Foramina: No evidence of significant spinal canal narrowing. No evidence for sign ificant neural foraminal stenosis. Neck soft tissues: Prevertebral soft tissues are within normal limits. Other: The airway is patent. The lung apices are clear. IMPRESSION: 1. No acute intracranial process 2. No evidence of cervical spine fracture. [facility], , 02/05/2025 10:19 PM
[2025-02-05 22:32] LABS: INR 0.9 (<1.2); Partial Thromboplastin Time 24.7 sec (22.0-30.0); Prothrombin Time 10.3 sec (10.0-12.5)
[2025-02-05] MEDS: METOCLOPRAMIDE 5 MG/ML 2 ML VIAL IVP STA (23:08)
[2025-02-05] MEDS: diphenhydrAMINE 50 MG/ML 1 ML VIAL IVP STA (23:09)
[2025-02-05] MEDS: KETOROLAC 15 MG/ML 1 ML VIAL IVP STA (23:09)
[2025-02-05] MEDS: methylPREDNISolone SOD SUCCI 125 MG/2 ML VIAL IV STA (23:09)
[2025-02-06 00:07] VITALS: BP 126/78; PULSE 80; RESP 16; TEMP 97.4
== END 2025-02-06 00:07 | disposition home or self-care (01) ==
LOC: EC 19:55
DX: R51.9 Headache, unspecified (principal); E87.1 Hypo-osmolality and hyponatremia; F17.290 Nicotine dependence, other tobacco product, uncomplicated; Z88.1 Allergy status to other antibiotic agents; Z88.2 Allergy status to sulfonamides; Z91.030 Bee allergy status; Z91.010 Allergy to peanuts; Z88.8 Allergy status to other drugs, medicaments and biological substances; Z91.018 Allergy to other foods
CPT/HCPCS: 36415; 80053; 85025; 85610; 85730; 72125; 70450; 99284; 96374; 96375 ×5; 96361; J2270; J1200; J2765; J2405; J1885; J2919

== ENCOUNTER 2025-02-06 18:59 | Emergency (ER) | payer BC ==
[2025-02-06 19:06] VITALS: RESP 18
--- NOTE | 2025-02-06 19:36 | ED ---
Headache HPI - General Chief Complaint: Headache Stated Complaint: vomiting, fast heart rate Time Seen by Provider: 02/06/25 19:12 Source: patient, RN notes reviewed Mode of arrival: ambulatory Limitations: no limitations - History of Present Illness Initial Comments: This is a 24 year old female who presents to the emergency department for a headache. Patient had occipital nerve injections for migraines yesterday. She came to the emergency department afterwards due to a severe migraine. She felt better when she was here and was discharged home. States that the headache came back and she has associated nausea and vomiting. She took an Excedrin Migraine without any relief. This was the first time she had ever received these injections. MD Complaint: "migraine" - Related Data Home Medications Medication Instructions Recorded Confirmed Albuterol Sulfate [Ventolin HFA] 1 - 2 puff INHALATION RT-Q6H PRN 09/23/20 02/05/25 Dextroamphetamine/Amphetamine 15 mg PO DAILY 02/03/25 02/05/25 [Adderall Xr 15 mg Capsule] Escitalopram [Lexapro] 10 mg PO HS 02/03/25 02/05/25 Lumateperone Tosylate [Caplyta] 21 mg PO HS 02/03/25 02/05/25 hydrOXYzine HCL [Hydroxyzine HCl] 10 mg PO DIRECTED PRN 02/03/25 02/05/25 traZODone HCL [Desyrel] 25 mg PO HS 02/03/25 02/05/25 Previous Rx's Medication Instructions Recorded Ondansetron Odt [Zofran Odt] 4 mg PO Q8HR PRN #20 tab 09/13/23 Butalbital/Aspirin/Caffeine 1 - 2 tab PO Q8H PRN 3 Days #18 tab 02/06/25 [Imqptr-Knmihke-Bxnqrepz 50-325-40 mg] Ketorolac [Toradol] 10 mg PO Q6HR PRN #15 tab 02/06/25 Ondansetron Odt [Zofran Odt] 4 mg PO Q8HR PRN #20 tab 02/06/25 Allergies Allergy/AdvReac Type Severity Reaction Status Date / Time bee venom protein (honey bee) Allergy Rash/Hives Verified 02/06/25 19:06 coconut Allergy Rash/Hives Verified 02/06/25 19:06 eletriptan Allergy Anaphylaxis Verified 02/06/25 19:06 peanut Allergy Nausea & Verified 02/06/25 19:06 Vomiting sulfamethoxazole Allergy Rash/Hives Verified 02/06/25 19:06 [From Bactrim] trimethoprim [From Bactrim] Allergy Rash/Hives Verified 02/06/25 19:06 Review of Systems ROS Statement: Those systems with pertinent positive or pertinent negative responses have been documented in the HPI. ROS Other: All systems not noted in ROS Statement are negative. Past Medical History Past Medical History: Asthma, GERD/Reflux Additional Past Medical History / Comment(s): nausea ongoing -possibly from anxiety& migraines History of Any Multi-Drug Resistant Organisms: None Reported Past Surgical History: Ear Surgery Additional Past Surgical History / Comment(s): tubes in Patricio ears, wisdom teeth, egd Past Anesthesia/Blood Transfusion Reactions: No Reported Reaction Past Psychological History: Anxiety, Bipolar, Depression Smoking Status: Vaper Past Alcohol Use History: Occasional Past Drug Use History: None Reported - Past Family History Mother Family Medical History: Diabetes Mellitus General Exam Limitations: no limitations General appearance: alert, in distress Head exam: Present: atraumatic, normocephalic, normal inspection Eye exam: Present: normal appearance, PERRL, EOMI. Absent: scleral icterus, conjunctival injection, periorbital swelling Neck exam: Present: normal inspection, full ROM. Absent: tenderness, meningismus, lymphadenopathy Respiratory exam: Present: normal lung sounds bilaterally. Absent: respiratory distress, wheezes, rales, rhonchi, stridor Cardiovascular Exam: Present: regular rate, normal rhythm Neurological exam: Present: alert, oriented X3, CN II-XII intact Psychiatric exam: Present: normal affect, normal mood Skin exam: Present: warm, dry, intact, normal color. Absent: rash Course Vital Signs 02/06/25 02/06/25 19:04 21:43 Temperature 99.5 F 98.9 F Pulse Rate 95 52 L Respiratory 18 Rate Blood Pressure 118/77 104/66 O2 Sat by Pulse 98 97 Oximetry Medical Decision Making - Medical Decision Making This is a 24-year-old female who presents to the emergency department for a headache. Was pt. sent in by a medical professional or institution? @ -No Did you speak to anyone other than the patient for history? @ -No Did you review nursing and triage notes? @ -Yes, and I agree, it is accurate with regards to the patient's symptoms. Were old charts reviewed? @ -CT scan of the brain and C-spine from 02/05/2025 revealing no acute process. Differential Diagnosis? @ -Differential Headache: Migraine, tension, cluster, carbon monoxide, central venous thrombosis, pension karma temporal arteritis, acute closure glaucoma, intercranial hemorrhage, mastoiditis, sinusitis, head injury, this is not meant to be an all-inclusive list. EKG interpreted by me (3pts min.)? @ -Not obtained X-rays interpreted by me (1pt min.)? @ -Not obtained CT interpreted by me (1pt min.)? @ -Not obtained U/S interpreted by me (1pt. min.)? @ -Not obtained What testing was considered but not performed? (CT, X-rays, U/S, labs)? Why? @ -None What meds were considered but not given? Why? @ -None Did you discuss the management of the patient with other professionals? @ -No Did you reconcile home meds? @ -No Was smoking cessation discussed for >3mins.? @ -No Was critical care preformed (if so, how long)? @ -No Were there social determinants of health that impacted care today? How? (Homelessness, low income, unemployed, alcoholism, drug addiction, transport ation, low edu. Level, literacy, decrease access to med. care, long term, rehab)? @ -No Was there de-escalation of care discussed even if they declined? (Discuss DNR or withdrawal of care, Hospice)? @ -No What co-morbidities impacted this encounter? (DM, HTN, Smoking, COPD, CAD, Cancer, CVA, Hep., AIDS, mental health diagnosis, sleep apnea, morbid obesity)? @ -Migraines Was patient admitted / discharged? @ -Discharged. Lab work demonstrates leukocytosis with a white blood cell count of 22.3. Lab work otherwise unremarkable. COVID, influenza, and RSV testing negative. Rapid strep test negative. It is not clear why her WBC increased so much compared with yesterday. She did receive steroids and had vomiting, which could be a contributing factor. CRP is negative and we would expect this to be elevated with some sort of infection. She also had no meningeal signs. She was treated with a migraine cocktail with improvement in symptoms. Pain returned shortly afterwards and she was given an additional dose of Toradol along with magnesium and Fioricet. Headache then again improved. At that point she requested discharge home. Toradol, Zofran, and Fioricet prescribed for any additional headaches. Advised follow-up with her PCP in the next couple of days. Patient discharged home in stable condition with strict return parameters. Case discussed with ED attending Dr. Blancas. Return precautions reviewed in depth, the patient is instructed to return to the emergency department with any new, worsening, or concerning symptoms. Patient verbalized understanding. Undiagnosed new problem with uncertain prognosis? @ -None Drug Therapy requiring intensive monitoring for toxicity (Heparin, Nitro, Insulin, Cardizem)? @ -None Were any procedures done? @ -None Diagnosis/symptom? @ -Migraine headache Acute, or Chronic, or Acute on Chronic? @ -Acute Uncomplicated (without systemic symptoms) or Complicated (systemic symptoms)? @ -Uncomplicated Side effects of treatment? @ -None Exacerbation, Progression, or Severe Exacerbation] @ -Not applicable Poses a threat to life or bodily function? @ -None - Lab Data Result diagrams: 02/06/25 19:27 02/06/25 19:27 Lab Results 02/06/25 02/06/25 02/06/25 Range/Units 19:27 19:27 19:43 WBC 22.3 H (3.8-10.6) k/uL RBC 4.79 (3.80-5.40) m/uL Hgb 12.4 (11.4-16.0) gm/dL Hct 38.6 (34.0-46.0) % MCV 80.6 (80.0-100.0) fL MCH 26.0 (25.0-35.0) pg MCHC 32.2 (31.0-37.0) g/dL RDW 13.7 (11.5-15.5) % Plt Count 400 (150-450) k/uL MPV 7.2 Neutrophils % 87 % Lymphocytes % 6 % Monocytes % 5 % Eosinophils % 0 % Basophils % 0 % Neutrophils # 19.5 H (1.3-7.7) k/uL Lymphocytes # 1.4 (1.0-4.8) k/uL Monocytes # 1.2 H (0-1.0) k/uL Eosinophils # 0.0 (0-0.7) k/uL Basophils # 0.0 (0-0.2) k/uL Sodium 138 (137-145) mmol/L Potassium 3.9 (3.5-5.1) mmol/L Chloride 106 (98-107) mmol/L Carbon Dioxide 22 (22-30) mmol/L Anion Gap 10 mmol/L BUN 11 (7-17) mg/dL Creatinine 0.61 (0.52-1.04) mg/dL Est GFR (CKD-EPI)AfAm >90 (>60 ml/min/1.73 sqM) Est GFR (CKD-EPI)NonAf >90 (>60 ml/min/1.73 sqM) Glucose 103 H (74-99) mg/dL Plasma Lactic Acid Maynor (0.7-2.0) mmol/L Calcium 9.9 (8.4-10.2) mg/dL Magnesium 1.9 (1.6-2.3) mg/dL Total Bilirubin 0.3 (0.2-1.3) mg/dL AST 21 (14-36) U/L ALT 17 (4-34) U/L Alkaline Phosphatase 81 (38-126) U/L C-Reactive Protein (<1.0) mg/dL Total Protein 7.4 (6.3-8.2) g/dL Albumin 4.4 (3.5-5.0) g/dL HCG, Qual Not Detected Influenza Type A (PCR) Not Detected (Not Detectd) Influenza Type B (PCR) Not Detected (Not Detectd) RSV (PCR) Not Detected (Not Detectd) SARS-CoV-2 (PCR) Not Detected (Not Detectd) 02/06/25 02/06/25 Range/Units 20:17 20:17 WBC (3.8-10.6) k/uL RBC (3.80-5.40) m/uL Hgb (11.4-16.0) gm/dL Hct (34.0-46.0) % MCV (80.0-100.0) fL MCH (25.0-35.0) pg MCHC (31.0-37.0) g/dL RDW (11.5-15.5) % Plt Count (150-450) k/uL MPV Neutrophils % % Lymphocytes % % Monocytes % % Eosinophils % % Basophils % % Neutrophils # (1.3-7.7) k/uL Lymphocytes # (1.0-4.8) k/uL Monocytes # (0-1.0) k/uL Eosinophils # (0-0.7) k/uL Basophils # (0-0.2) k/uL Sodium (137-145) mmol/L Potassium (3.5-5.1) mmol/L Chloride (98-107) mmol/L Carbon Dioxide (22-30) mmol/L Anion Gap mmol/L BUN (7-17) mg/dL Creatinine (0.52-1.04) mg/dL Est GFR (CKD-EPI)AfAm (>60 ml/min/1.73 sqM) Est GFR (CKD-EPI)NonAf (>60 ml/min/1.73 sqM) Glucose (74-99) mg/dL Plasma Lactic Acid Maynor 0.9 (0.7-2.0) mmol/L Calcium (8.4-10.2) mg/dL Magnesium (1.6-2.3) mg/dL Total Bilirubin (0.2-1.3) mg/dL AST (14-36) U/L ALT (4-34) U/L Alkaline Phosphatase (38-126) U/L C-Reactive Protein <0.5 (<1.0) mg/dL Total Protein (6.3-8.2) g/dL Albumin (3.5-5.0) g/dL HCG, Qual Influenza Type A (PCR) (Not Detectd) Influenza Type B (PCR) (Not Detectd) RSV (PCR) (Not Detectd) SARS-CoV-2 (PCR) (Not Detectd) Disposition Clinical Impression: Migraine headache Disposition: HOME SELF-CARE Instructions (If sedation given, give patient instructions): Acute Headache (ED) Additional Instructions: Return to the emergency department with any new, worsening, or concerning symptoms. Take the Toradol with Tylenol as needed for pain relief. If you choose to take the Toradol, do not take any other anti-inflammatories such as ibuprofen, take one or the other. Take the Zofran up to every 8 hours as needed for nausea and vomiting. Take the Fioricet as 1 to 2 capsules up to every 4 hours as needed. Do not take more than 6 tablets in 24 hours. Follow up with your primary care provider in 1-2 days. Prescriptions: Butalbital/Aspirin/Caffeine [Tuthgt-Erbgxpw-Dgqdtctj 50-325-40 mg] 1 - 2 tab PO Q8H PRN 3 Days #18 tab PRN Reason: Migraine Headache Ketorolac [Toradol] 10 mg PO Q6HR PRN #15 tab PRN Reason: Pain Ondansetron Odt [Zofran Odt] 4 mg PO Q8HR PRN #20 tab PRN Reason: Nausea And Vomiting Is patient prescribed a controlled substance at d/c from ED?: Yes When asked, does pt state using other controlled substances?: Yes If prescribed controlled substance>3 days was MAPS reviewed?: Prescribed <3 Days Referrals: Shwan Ya Jr, [Primary Care Provider] - 1-2 days Time of Disposition: 22:53
[2025-02-06] MEDS: PROCHLORPERAZINE INJ 10 MG/2 ML VIAL IVP STA (19:37)
[2025-02-06] MEDS: KETOROLAC 15 MG/ML 1 ML VIAL IVP STA ×2 (19:37→21:53)
[2025-02-06] MEDS: DEXAMETHASONE SOD PHOSPHATE 10 MG/ML 1 ML VIAL IVP STA (19:38)
[2025-02-06] MEDS: diphenhydrAMINE 50 MG/ML 1 ML VIAL IVP STA (19:38)
[2025-02-06] MEDS: SODIUM CHLORIDE 0.9% 1,000 ML IV STA (19:38)
[2025-02-06 19:55] LABS: Basophils % (A) 0 %; Eosinophils % (A) 0 %; HCT 38.6 % (34.0-46.0); HGB 12.4 gm/dL (11.4-16.0); Lymphocytes # (A) 1.4 k/uL (1.0-4.8); Lymphocytes % (A) 6 %; MCHC 32.2 g/dL (31.0-37.0); MCV 80.6 fL (80.0-100.0); Mean Platelet Volume 7.2; Monocytes # (A) 1.2 k/uL (0-1.0); Monocytes % (A) 5 %; Neutrophils # (A) 19.5 k/uL (1.3-7.7); Neutrophils % (A) 87 %; Platelet Count 400 k/uL (150-450); RBC 4.79 m/uL (3.80-5.40); RDW 13.7 % (11.5-15.5); WBC 22.3 k/uL (3.8-10.6)
[2025-02-06 20:09] LABS: ALT 17 U/L (4-34); AST 21 U/L (14-36); African American GFR (CKD) >90 (>60 ml/min/1.73 sqM); Albumin 4.4 g/dL (3.5-5.0); Alkaline Phosphatase 81 U/L (38-126); Anion Gap 10 mmol/L; Blood Urea Nitrogen 11 mg/dL (7-17); Calcium 9.9 mg/dL (8.4-10.2); Carbon Dioxide 22 mmol/L (22-30); Chloride 106 mmol/L (98-107); Glucose 103 mg/dL (74-99); Magnesium 1.9 mg/dL (1.6-2.3); Non-African American GFR(CKD) >90 (>60 ml/min/1.73 sqM); Potassium 3.9 mmol/L (3.5-5.1); Sodium 138 mmol/L (137-145); Total Bilirubin 0.3 mg/dL (0.2-1.3); Total Protein 7.4 g/dL (6.3-8.2)
[2025-02-06 20:26] LABS: HCG,Qualitative Serum Not Detected
[2025-02-06 20:31] LABS: Influenza A Not Detected (Not Detectd); Influenza B Not Detected (Not Detectd); RSV Not Detected (Not Detectd)
[2025-02-06 21:44] VITALS: TEMP 98.9
[2025-02-06] MEDS: METOCLOPRAMIDE 5 MG/ML 2 ML VIAL IVP STA (21:53)
[2025-02-06] MEDS: MAGNESIUM SULFATE-D5W PMX 1 GM in DEXTROSE/WATER 1 100ML.BAG IVPB ONE (21:54)
[2025-02-06] MEDS: BUTALB/APAP/CAFF 50-325-40MG TAB PO STA (21:58)
[2025-02-06 23:37] VITALS: BP 116/70; PULSE 76
[2025-02-06] MEDS: ONDANSETRON 4 MG ODT STARTER PACK 2 TAB BTL PO STA (23:38)
[2025-02-06] MEDS: traMADol 50 MG STARTER PACK 3 TAB BTL PO STA (23:38)
== END 2025-02-06 23:37 | disposition home or self-care (01) ==
LOC: EC 18:59
DX: G43.909 Migraine, unspecified, not intractable, without status migrainosus (principal); F17.290 Nicotine dependence, other tobacco product, uncomplicated; Z91.030 Bee allergy status; Z88.2 Allergy status to sulfonamides; Z88.1 Allergy status to other antibiotic agents; Z91.010 Allergy to peanuts; Z91.018 Allergy to other foods; Z88.8 Allergy status to other drugs, medicaments and biological substances
CPT/HCPCS: 36415; 87651; 80053; 83605; 83735; 85025; 86140; 84703; 87636; 99283; 96365; 96366; 96375; 96376; 96361; J1200; J0780; J1100; J2765; J3475; J1885; S0119

== ENCOUNTER → 2025-03-15 | Outpatient (CLI) | payer BC ==
[2025-03-15 08:52] VITALS: BP 118/82; PULSE 74; RESP 18; TEMP 97.8
--- NOTE | 2025-03-15 16:34 | P.PAINPG ---
PQRS Measure Charge Sheet Comment: HISTORY OF PRESENT ILLNESS: A 24 yr old female presents today w severe and chronic PHAN and neck pain > 3 mo secondary to Occipital Neuralgia, Cervicogenic PHAN for evaluation s/p BL AALIYAH #1. Pt states she experienced 0% pain relief s/p procedure. Pt states pain level is provoked at 5-8 /10 in intensity, constant, localized in the upper neck, predominantly axial, sharp in character w occasional shooting pain towards the back of the ears L> R. Pain is provoked by rotation. Pain is alleviated by massage therapy x 8 wks which ended in Fall 2023, physician guided home exercises 5-6 times weekly since Fall 2023, medications, manual massage, repositioning and rest . Disinterested in future injections, such as for cervicogenic PHAN but has an upcoming appt w Neurology to explore additional treatment options. Interventional procedures include BL AALIYAH x1 Medications include Tyl, Ibu REVIEW OF ORGAN SYSTEMS: CONSTITUTIONAL: No fevers or chills. No recent weight loss. NEUROLOGICAL: + numbness and tingling along the distal extremities. No seizure disorders or headaches. MUSCULOSKELETAL: + pain PSYCHIATRIC: Denies current depression or suicidal thoughts. Physical Examinations : Constitutional : Cooperative , not in acute distress . Neurologic : Cranial nerve II to XII intact. No focal neurological deficits. Psychiatric : alert & oriented x 3. Matching mood & appropriate affect. Judgment & insight intact. Musculoskeletal : Cervical Spine +BL AALIYAH TTP Motor strength in the deltoid and biceps: Normal right side. Normal Left side Motor strength biceps and the wrist extensors: Normal right side . Normal left side Motor strength in the triceps muscle: Normal right side. Normal left side Deep tendon reflexes: Normal at the biceps. Normal at Brachioradialis. Normal at triceps Vertebral body tenderness to deep palpation over Cervical facet loading test: positive bilaterally Spurling test: positive bilaterally Neck distraction test: positive bilaterally Valerio sign: positive bilaterally Lumbar spine Motor strength lower extremities ,thigh and legs 5/5 Right side , 5/5 Left side Deep tendon reflexes : Normal Knee Jerk. Normal Ankle Jerk Vertebral body tenderness over Hodge Test positive Lumbar facet Loading Test: positive Right / positive Left Range of motion of the lumbar spine Flexion 30 degrees, extension 10 degrees Straight Leg Raise test: Left/ Right positive at degrees Spencer test: positive right / positive left. Severe tenderness over the Sacroiliac joint on the Right / Left sides Gaenslen test: positive bilaterally Seated flexion test: positive bilaterally. Sacral spine : Severe tenderness over the Sacroiliac joint: right side / left side Range of motion: Flexion of the lumbar spine <60 degrees Range of motion: Extension of the lumbar spine <20 degrees Gaenslen's Test positive Spencer test: positive right side / left side Thigh Thrust Test Sacral Thrust Test Imaging: CT non contrast brain from 09/13/23 reviewed Assessment/ Plan : Occipital Neuralgia, Cervigenic HPAN Recommendation of medication management. Fioricet 50/300/40mg #100 w 1 RF. Opiate/ narcotic agreement signed 03/15/25. Use, side effects, adverse reactions, safe storage discussed. Pt states she has a follow up appt with a neurologist to explore additional treatment options. All questions answered. I have spent greater than 30 minutes on patient care today. Dr Lord was available by phone for the evaluation of this patient. The time was used to review the medical records including relevant urine studies and Prescription history (MAPs), review of the available imaging, evaluation and examination of the patient, coordination of care with the medical staff and if applicable referring physicians, as well as creation of the medical record - Pain Location Head Pharmacological Interventions: Medication PQRS Narrative: Smoking Status Never smoker Home Medications: Ambulatory Orders Albuterol Sulfate [Ventolin HFA] 1 - 2 puff INHALATION RT-Q6H PRN 09/23/20 Ondansetron Odt [Zofran Odt] 4 mg PO Q8HR PRN #20 tab 09/13/23 Dextroamphetamine/Amphetamine [Adderall Xr 15 mg Capsule] 15 mg PO DAILY 02/03/25 Escitalopram [Lexapro] 10 mg PO HS 02/03/25 Lumateperone Tosylate [Caplyta] 21 mg PO HS 02/03/25 hydrOXYzine HCL [Hydroxyzine HCl] 10 mg PO DIRECTED PRN 02/03/25 traZODone HCL [Desyrel] 25 mg PO HS 02/03/25 Ketorolac [Toradol] 10 mg PO Q6HR PRN #15 tab 02/06/25 Ondansetron Odt [Zofran Odt] 4 mg PO Q8HR PRN #20 tab 02/06/25 Butalbital/Aspirin/Caffeine [Xqbjff-Agipgvp-Zjnzaeqp 50-325-40 mg] 1 - 2 tab PO Q8H PRN 30 Days #100 tab 03/15/25 Controlled Substance Measures - Controlled Substance Measures Is patient prescribed a controlled substance at discharge?: Yes When asked, does pt state using other controlled substances?: Yes If prescribed controlled substance>3 days was MAPS reviewed?: Yes If Rx opioid, was Start Talking consent form obtained?: Yes Was information provided regarding opioid addiction?: Yes
== END ==
LOC: PNWHC3 08:31
PROVIDERS: ATTEND Specialist
DX: M54.81 Occipital neuralgia (principal); G44.86 Cervicogenic headache; M71.38 Other bursal cyst, other site; Z91.030 Bee allergy status; Z91.018 Allergy to other foods; Z91.010 Allergy to peanuts; Z88.2 Allergy status to sulfonamides; Z88.8 Allergy status to other drugs, medicaments and biological substances
CPT/HCPCS: 99212